=== PATIENT | female | born 1980 | race Caucasian/White ===

== ENCOUNTER 2022-01-10 14:32 | Emergency (ER) | payer OTHER, SELFPAY ==
[2022-01-10 14:43] VITALS: BP 110/75; PULSE 72; RESP 18; TEMP 37.1; O2SAT 100
--- NOTE | 2022-01-10 14:43 | ED.URI ---
HPI - URI/Sore Throat General Chief Complaint: Upper Respiratory Infection Stated Complaint: cold symptoms Time Seen by Provider: 01/10/22 14:43 Source: patient and RN notes reviewed Mode of arrival: ambulatory Limitations: no limitations History of Present Illness HPI Narrative: 41-year-old female presented for complaint of headache, sore throat, sinus congestion, and body aches for about 5 days. She states she felt better 2 days ago but then symptoms worsened yesterday. She has been taking [id number] medication for symptoms. Denies chest pain, shortness of breath, wheezing, vomiting, diarrhea, fever or chills. She took a home COVID test that was -4 days ago. She is vaccinated for Covid and flu. Denies sick contacts. MD elicited complaint: cough Related Data Home Medications Medication Instructions Recorded Confirmed levonorgestrel [Mirena] 1 device INTRAUTERINE ONCE 01/10/22 01/10/22 Allergies Allergy/AdvReac Type Severity Reaction Status Date / Time clarithromycin [From Biaxin] Allergy Other Verified 01/10/22 14:53 Review of Systems Review of Systems: CONSTITUTIONAL: denies malaise, chills, sweats, fever EYES: Denies visual changes, redness, or discharge ENT: Reports rhinorrhea, congestion, sinus pain, sore throat CARDIOVASCULAR: Denies chest pain, palpitations, edema RESPIRATORY: Reports cough, post nasal drainage. Denies dyspnea GASTROINTESTINAL: Denies abdominal pain, vomiting, diarrhea SKIN: Denies rash or itching MUSCULOSKELETAL: Endorses myalgia NEUROLOGIC: Denies headache Exam Narrative: GENERAL: Ill-appearing, nontoxic no acute distress. HEAD: Normocephalic EYES: conjunctivae clear ENT: Mucous membranes moist. TM pearly dias with dull light reflex bilaterally; no tragal tenderness. Oropharynx erythematous without lesions or exudate, no drooling, no hoarseness, no trismus, uvula midline. NECK: Supple. No lymphadenopathy CHEST: Clear to auscultation, breath sounds equal. No wheezing, rhonchi, rales, or stridor. HEART: Regular rate and rhythm. No murmur heard. SKIN: Warm, dry, no rash. NEURO: Alert and oriented x3. PSYCH: Normal mood and affect Course Course Emergency Course: Patient is aware of diagnosis, understands and agrees to treatment plan. Anticipatory guidance given. Patient agrees to follow-up as directed and is aware of reasons to seek care at the emergency department. Portions of this record may have been created with voice recognition software Level of Care: Express Care Visit Vital Signs Vital signs: Vital Signs Temperature 98.7 F 01/10/22 14:43 Pulse Rate 72 01/10/22 14:43 Respiratory Rate 18 01/10/22 14:43 Blood Pressure 110/75 01/10/22 14:43 Pulse Oximetry 100 01/10/22 14:43 Temperature 98.7 F 01/10/22 14:43 Pulse Rate 72 01/10/22 14:43 Respiratory Rate 18 01/10/22 14:43 Blood Pressure 110/75 01/10/22 14:43 Pulse Oximetry 100 01/10/22 14:43 reviewed MDM - URI/Sore Throat MDM Narrative Medical decision making narrative: Covid and flu negative. Strep positive. Pt is aware and appropriate for outpt treatment. Differential Diagnosis Differential diagnosis: Likely upper respiratory infection, sinusitis, viral infection, influenza and pharyngitis Lab Data Attestation: I reviewed the patient's lab results. Discharge Plan Discharge Clinical Impression: Strep pharyngitis Patient Disposition: Home, Self-Care Condition: Stable Instructions: Antibiotic Form Additional Instructions: -Take the medication as prescribed. Throw away the toothbrush after 24hours of antibiotic. -You are contagious for 24 hours after starting the antibiotic -Eat and drink things that are easy to swallow, like soft foods, cool liquids, tea with honey, or popsicles . -Salt water gargles and/or may use topical anesthetic ( Chloraseptic spray) or lozenges to relieve dryness or throat pain -Take Tylenol and ibuprofen as needed for pain and fever as d
== END 2022-01-10 15:12 | disposition home or self-care (01) ==
PROVIDERS: Emergency Provider Nurse Practitioner Family
DX: J02.0 Streptococcal pharyngitis (principal); Z20.822 Contact with and (suspected) exposure to COVID-19
CPT/HCPCS: 87426; 87804; 87880; 99203; C9803; G0463

== ENCOUNTER 2022-02-13 15:23 | Emergency (ER) | payer OTHER, SELFPAY ==
[2022-02-13 15:47] VITALS: BP 97/73; PULSE 61; RESP 18; TEMP 36.6; O2SAT 100
--- NOTE | 2022-02-13 16:07 | ED.URI ---
HPI - URI/Sore Throat General Chief Complaint: Upper Respiratory Infection Stated Complaint: Cold symptoms Time Seen by Provider: 02/13/22 15:55 Source: patient and RN notes reviewed Mode of arrival: ambulatory Limitations: no limitations History of Present Illness HPI Narrative: 41-year-old female presented for complaint of sinus pressure, congestion, cough and burning sensation in chest for about 4 weeks. 12/2021 she was treated for strep, states she had significant improvement in strep symptoms, and then after completing antibiotic she developed that upper respiratory symptoms. She did change her allergy medication and has taken Tylenol and ibuprofen without significant relief. Denies shortness of breath, wheezing, nausea, vomiting, diarrhea, fevers or chills. Denies sick contacts. She has been vaccinated for COVID and flu. MD elicited complaint: cough Related Data Home Medications Medication Instructions Recorded Confirmed levonorgestrel [Mirena] 1 device INTRAUTERINE ONCE 01/10/22 02/13/22 Allergies Allergy/AdvReac Type Severity Reaction Status Date / Time clarithromycin [From Biaxin] Allergy Other Verified 02/13/22 16:00 Review of Systems Review of Systems: CONSTITUTIONAL: denies malaise, chills, sweats, fever EYES: Denies visual changes, redness, or discharge ENT: Reports rhinorrhea, congestion, sinus pain CARDIOVASCULAR: Denies chest pain, palpitations, edema RESPIRATORY: Reports cough, post nasal drainage. Denies dyspnea GASTROINTESTINAL: Denies abdominal pain, nausea, vomiting, diarrhea SKIN: Denies rash or itching MUSCULOSKELETAL: denies myalgia NEUROLOGIC: endorses headache Exam Narrative: GENERAL: Ill-appearing, nontoxic HEAD: Normocephalic EYES: conjunctivae clear ENT: Mucous membranes moist. TM pearly dias with dull light reflex bilaterally; no tragal tenderness. Oropharynx erythematous without lesions or exudate, no drooling, no hoarseness, no trismus, uvula midline. NECK: Supple. No lymphadenopathy CHEST: Clear to auscultation, breath sounds equal. No wheezing, rhonchi, rales, or stridor. No respiratory distress, speaks in full sentences. HEART: Regular rate and rhythm. No murmur heard. SKIN: Warm, dry, no rash. NEURO: Alert and oriented x3. PSYCH: Normal mood and affect Course Course Emergency Course: Patient is aware of diagnosis, understands and agrees to treatment plan. Anticipatory guidance given. Patient agrees to follow-up as directed and is aware of reasons to seek care at the emergency department. Portions of this record may have been created with voice recognition software Level of Care: Express Care Visit Vital Signs Vital signs: Vital Signs Temperature 97.8 F 02/13/22 15:47 Pulse Rate 61 02/13/22 15:47 Respiratory Rate 18 02/13/22 15:47 Blood Pressure 97/73 L 02/13/22 15:47 Pulse Oximetry 100 02/13/22 15:47 Temperature 97.8 F 02/13/22 15:47 Pulse Rate 61 02/13/22 15:47 Respiratory Rate 18 02/13/22 15:47 Blood Pressure 97/73 L 02/13/22 15:47 Pulse Oximetry 100 02/13/22 15:47 reviewed MDM - URI/Sore Throat Differential Diagnosis Differential diagnosis: Likely upper respiratory infection, sinusitis and viral infection Discharge Plan Discharge Clinical Impression: Upper respiratory infection Qualifiers: URI type: unspecified URI Qualified Code(s): J06.9 - Acute upper respiratory infection, unspecified Patient Disposition: Home, Self-Care Condition: Stable Instructions: Antibiotic Form, Sinusitis (ED) Additional Instructions: Recommend Flonase spray and Zyrtec (or Claritin/Mary) over the counter Cough syrup may cause drowsiness Tylenol every 8 hours as needed for pain/pressure Symptomatic treatment includes: rest, fluids, and increase humidity of the air at home. Follow up with your primary care provider as needed in 1week Go to the ER for worsening symptoms or concerns Prescriptions: New amoxicillin-pot clavul
== END 2022-02-13 16:10 | disposition home or self-care (01) ==
PROVIDERS: Emergency Provider Nurse Practitioner Family
DX: J06.9 Acute upper respiratory infection, unspecified (principal)
CPT/HCPCS: 99213; G0463

== ENCOUNTER 2022-02-18 10:05 | Emergency (ER) | payer OTHER, SELFPAY ==
--- NOTE | ~2022-02-18 | XR_ITS ---
EXAMINATION: XR chest 2V DATE: 02/18/2022 10:45 INDICATION: Productive cough. Congestion. TECHNIQUE: Frontal and lateral views of the chest were obtained on 3 radiographs. COMPARISON: None. FINDINGS: There is no pneumonia, pleural effusion, or pneumothorax. The heart size is normal. IMPRESSION: 1. No acute cardiopulmonary disease. Reviewed, dictated and finalized at location A.
[2022-02-18 10:24] VITALS: BP 95/66; PULSE 60; RESP 16; TEMP 36.3; O2SAT 97
--- NOTE | 2022-02-18 10:25 | ED.URI ---
HPI - URI/Sore Throat General Chief Complaint: Upper Respiratory Infection Stated Complaint: cold symptoms,chest congestion Time Seen by Provider: 02/18/22 10:27 Source: patient Mode of arrival: ambulatory Limitations: no limitations History of Present Illness HPI Narrative: Ms. Martínez is a 41-year-old female patient presenting to the clinic today with complaints of chest congestion with productive cough x1 month. She reports she was seen just last week and was given a prescription for some Augmentin. Has a history of nontuberculosis Mycobacterium. She reports that she is bringing up some green-yellowish phlegm. No history of COPD or asthma. No history of smoking. States that she was having pain with inspiration in her chest however that has resolved but now when she is breathing she is feeling a lot of crackling/congestion in her chest. Related Data Home Medications Medication Instructions Recorded Confirmed levonorgestrel 20 mcg/24 hours (7 1 device intrauterine ONCE 01/10/22 02/18/22 yrs) 52 mg intrauterine device (Mirena) Allergies Allergy/AdvReac Type Severity Reaction Status Date / Time clarithromycin [From Biaxin] Allergy Other Verified 02/18/22 10:38 Review of Systems Review of Systems: Pertinent positives per HPI. Patient denies any fever, chills, rash, headache, visual changes, dizziness, runny nose, sore throat, shortness of breath, chest pain, palpitations, nausea, vomiting, diarrhea, constipation, abdominal pain, or any urinary issues. Exam Narrative: General: Well-developed, well nourished, in no apparent distress Head: Normocephalic, atraumatic Eyes: Pupils equally round and reactive to light bilaterally, EOM intact, sclera and conjunctive clear, no discharge, lids normal Ears: TMs intact and clear, ear canals clear, no drainage, grossly hearing normal. Nose: Nares patent, clear discharge, no inflammation, no sinus tenderness. Mouth: Oropharynx without lesions or masses, good dentition, MMM. Neck: Supple, trachea midline, no enlargement of anterior or posterior cervical nodes, no thyroid masses or goiter palpable. Cardio: Regular rate and rhythm, s1 and s2 normal, no murmur appreciated. Resp: Clear to auscultation bilaterally anteriorly and posteriorly with moderate airflow, no rhonchi, rales, wheezing or rubs Course Course Emergency Course: This electronic medical record has been dictated using [employer] voice recognition software and may contain grammatical errors. Level of Care: Express Care Visit Vital Signs Vital signs: Vital Signs Temperature 36.3 C L 02/18/22 10:24 Pulse Rate 60 02/18/22 10:24 Respiratory Rate 16 02/18/22 10:24 Blood Pressure 95/66 L 02/18/22 10:24 Pulse Oximetry 97 02/18/22 10:24 Oxygen Delivery Room Air 02/18/22 10:24 Temperature 36.3 C L 02/18/22 10:24 Pulse Rate 60 02/18/22 10:24 Respiratory Rate 16 02/18/22 10:24 Blood Pressure 95/66 L 02/18/22 10:24 Pulse Oximetry 97 02/18/22 10:24 Oxygen Delivery Room Air 02/18/22 10:24 Vital signs reviewed MDM - URI/Sore Throat MDM Narrative Medical decision making narrative: At the time of this assessment patient is resting comfortably on the exam table. She reports coughing up green and yellow phlegm with a history of nontuberculosis myobacterium pulmonary disease. She has been on 5 days of Augmentin and these have improved her symptoms some. X-ray was completed and was negative for any pneumonia. I suspect that the patient has bronchitis and will give her another 5 days of Augmentin as she was initially diagnosed with sinusitis and was only given 5 days of Augmentin. I will also add albuterol inhaler to the regimen. Supportive measures and treatment plan was discussed with patient she voiced understanding of discharge instructions. Differential Diagnosis Differential diagnosis: Likely upper respiratory infection, sinusitis, viral infection, bronchitis, influenza and pharyng
== END 2022-02-18 11:01 | disposition home or self-care (01) ==
PROVIDERS: Emergency Provider Nurse Practitioner Family
DX: J40 Bronchitis, not specified as acute or chronic (principal)
CPT/HCPCS: 71046; 99213; G0463

== ENCOUNTER 2022-05-15 08:27 | Emergency (ER) | payer OTHER, SELFPAY ==
--- NOTE | 2022-05-15 08:30 | ED.SKABFB ---
HPI - Skin/Abscess/Foreign Bdy General Stated complaint: FACIAL SWELLING/RASH Time Seen by Provider: 05/15/22 08:30 Source: patient and RN notes reviewed History of Present Illness HPI narrative: Patient is a 41-year-old female who presents the urgent care with complaints of swelling under the left eye and bumps to the abdomen. Patient states that she has not taken anything [id number] for her symptoms. Patient states that her son started with symptoms after they were outside of the ball field on Thursday and she just wanted to be evaluated as well . Patient denies any itchiness. Denies any changes in vision. No other acute complaints. No acute distress noted. Patient aware of the plan of care. Some parts of this dictation were generated by voice recognition software and may contain typographical and/or grammatical inaccuracies. Related Data Home Medications Medication Instructions Recorded Confirmed levonorgestrel 20 mcg/24 hours (7 1 device intrauterine ONCE 01/10/22 02/18/22 yrs) 52 mg intrauterine device (Mirena) Allergies Allergy/AdvReac Type Severity Reaction Status Date / Time clarithromycin [From Biaxin] Allergy Other Verified 02/18/22 10:38 Review of Systems Review of Systems: CONSTITUTIONAL: Denies fever, chills, or sweats. EYES: Denies visual changes, redness, or discharge. Reports of swelling under the left eyelid ENT: Denies rhinorrhea, congestion, sore throat, or otalgia. CARDIOVASCULAR: Denies chest pain, palpitations, or edema. RESPIRATORY: Denies cough or dyspnea. GASTROINTESTINAL: Denies abdominal pain, nausea, vomiting, or diarrhea. GENITOURINARY: Denies dysuria or hematuria. SKIN: Reports of bumps on the abdomen MUSCULOSKELETAL: Denies back pain, joint pain, or myalgia. NEUROLOGIC: Denies headache, numbness, or weakness. All other systems reviewed are negative, except as documented in HPI. PMFSH Comments At the time of my signature, I reviewed and agree with the nursing past medical, surgical, social, and family history. There is no relevant family history pertinent to the patient complaint. Exam Narrative: GENERAL: This is a well-nourished, well-developed patient, in no apparent distress. HEAD: normocephalic, atraumatic. EYES: PERRL. Sclera clear/white. Vision is grossly intact. Very mild left tear trough edema without erythema EARS: External ears normal NOSE: External nose normal with no obvious nasal discharge, nares without redness, no rhinorrhea. THROAT: Mucous membranes moist NECK: Neck supple CARDIOVASCULAR: Regular rate and rhythm without murmurs, gallops, or rubs. RESPIRATORY: Clear to auscultation. Breath sounds equal bilaterally. No wheezes, rales, or rhonchi. GASTROINTESTINAL: Abdomen soft, non-tender, nondistended. Bowel sounds are active. No hepato-splenomegaly, or palpable masses. No guarding. SKIN: 4 scattered raised erythemic papules to the abdomen NEURO: awake, alert, and oriented to person, place and time. There were no obvious focal neurologic abnormalities. EXTREMITIES: No clubbing, cyanosis, or edema. Course Course Level of Care: Express Care Visit Vital Signs Vital signs: Vital Signs Temperature 99.6 F 05/15/22 08:43 Pulse Rate 72 05/15/22 08:43 Respiratory Rate 16 05/15/22 08:43 Blood Pressure 111/80 05/15/22 08:43 Pulse Oximetry 100 05/15/22 08:43 Temperature 99.6 F 05/15/22 08:43 Pulse Rate 72 05/15/22 08:43 Respiratory Rate 16 05/15/22 08:43 Blood Pressure 111/80 05/15/22 08:43 Pulse Oximetry 100 05/15/22 08:43 Reviewed MDM - Skin/Abscess/Foreign Bdy MDM Narrative Medical decision making narrative: Advised the patient to use the cream to the affected areas of the abdomen. Keep away from the eyes, underarms and groin. Use a daily antihistamine such as Claritin or Zyrtec as well as Benadryl as needed for itch or swelling. Follow-up with your PCP within 2 to 5 days or for worsening symptoms or failure to
[2022-05-15 08:43] VITALS: BP 111/80; PULSE 72; RESP 16; TEMP 37.6; O2SAT 100
== END 2022-05-15 09:32 | disposition home or self-care (01) ==
PROVIDERS: Emergency Provider Nurse Practitioner Family
DX: S30.861A Insect bite (nonvenomous) of abdominal wall, initial encounter (principal); W57.XXXA Bitten or stung by nonvenomous insect and other nonvenomous arthropods, initial encounter
CPT/HCPCS: 99213; G0463

== ENCOUNTER 2023-01-13 08:04 | Emergency (ER) | payer OTHER, SELFPAY ==
--- NOTE | 2023-01-13 08:19 | ED.URI ---
HPI - URI/Sore Throat General Chief Complaint: Upper Respiratory Infection Stated Complaint: sorethroat,headache Time Seen by Provider: 01/13/23 08:19 Source: patient Mode of arrival: ambulatory Limitations: no limitations History of Present Illness HPI Narrative: 42-year-old female presents with complaint nasal congestion, cough, sore throat, body aches, fatigue, headache for the past 3 days. Is taking [id number] medications to treat her symptoms. Afebrile. Reports that her daughter had strep throat last week. Is concerned that she may have it. Denies nausea vomiting diarrhea all systems reviewed and negative except as noted above. Related Data Home Medications Medication Instructions Recorded Confirmed levonorgestrel 21 mcg/24 hours (8 1 device intrauterine ONCE 01/10/22 02/18/22 yrs) 52 mg intrauterine device (Mirena) Allergies Allergy/AdvReac Type Severity Reaction Status Date / Time clarithromycin [From Biaxin] Allergy Other Verified 01/13/23 08:21 Review of Systems Review of Systems: CONSTITUTIONAL: Denies fever. Reports chills, or sweats. EYES: Denies visual changes, redness, or discharge. ENT: Reports rhinorrhea, congestion, sore throat. Denies otalgia. CARDIOVASCULAR: Denies chest pain, palpitations, or edema. RESPIRATORY: reports cough. Denies dyspnea. GASTROINTESTINAL: Denies abdominal pain, nausea, vomiting, or diarrhea. GENITOURINARY: Denies dysuria or hematuria. SKIN: Denies rash or itching. MUSCULOSKELETAL: Denies back pain, joint pain, or myalgia. NEUROLOGIC: Denies headache, numbness, or weakness. PSYCHIATRIC: Denies anxiety or depression. All other systems reviewed are negative, except as documented in HPI. PMFSH Comments At time of signature, agree with nursing past medical, surgical, social and family history. There is no relevant family history pertinent to the presenting complaint. Exam Narrative: GENERAL: This is a well-nourished, well-developed patient, in no apparent distress. HEAD: normocephalic, atraumatic. EYES: PERRL. Sclera clear/white. Vision is grossly intact. EARS: External ears normal, auditory canals clear and without drainage, TMs normal without perforation. Hearing grossly intact. NOSE: External nose normal with clear nasal drainage, mild erythema to nares. THROAT: Mucous membranes moist, Mild erythema to posterior pharynx. No swelling or exudates. NECK: Neck supple, non-tender without lymphadenopathy, masses or thyromegaly. CARDIOVASCULAR: Regular rate and rhythm without murmurs, gallops, or rubs. RESPIRATORY: Clear to auscultation. Breath sounds equal bilaterally. No wheezes, rales, or rhonchi. SKIN: warm, Dry, intact with no suspicious lesions or rash, good texture and turgor. NEURO: awake, alert, and oriented to person, place and time. There were no obvious focal neurologic abnormalities. EXTREMITIES: No joint tenderness, effusion, or edema noted. Course Course Level of Care: Express Care Visit Vital Signs Vital signs: Vital Signs Temperature 36.8 C 01/13/23 08:21 Pulse Rate 73 01/13/23 08:21 Respiratory Rate 16 01/13/23 08:21 Blood Pressure 111/73 01/13/23 08:21 Pulse Oximetry 100 01/13/23 08:21 Oxygen Delivery Room Air 01/13/23 08:21 Temperature 36.8 C 01/13/23 08:21 Pulse Rate 73 01/13/23 08:21 Respiratory Rate 16 01/13/23 08:21 Blood Pressure 111/73 01/13/23 08:21 Pulse Oximetry 100 01/13/23 08:21 Oxygen Delivery Room Air 01/13/23 08:21 Reviewed MDM - URI/Sore Throat MDM Narrative Medical decision making narrative: Patient is aware of diagnosis, understands and agrees to treatment plan. Anticipatory guidance given. Patient agrees to follow-up as directed and is aware of reasons to seek care at the emergency department. Portions of this record may have been created with voice recognition software negative COVID, strep and influenza test. Patient would like to wait for stre
[2023-01-13 08:21] VITALS: BP 111/73; PULSE 73; RESP 16; TEMP 36.8; O2SAT 100
== END 2023-01-13 08:50 | disposition home or self-care (01) ==
PROVIDERS: Emergency Provider Nurse Practitioner Family
DX: J06.9 Acute upper respiratory infection, unspecified (principal); Z20.822 Contact with and (suspected) exposure to COVID-19
CPT/HCPCS: 87081; 87426; 87804; 87880; 99213; C9803; G0463

== ENCOUNTER 2023-08-26 09:54 | Emergency (ER) | payer OTHER, SELFPAY ==
--- NOTE | ~2023-08-26 | XR_ITS ---
Clinical Indication: Chest pain PA and lateral views of the chest: Comparison: 02/18/2022 Findings: The lungs are clear, without evidence of focal consolidation or pleural effusion. Cardiome diastinal silhouette is within normal limits. Bones and soft tissues are unremarkable. Impression: Normal chest. Reviewed, dictated and finalized at [facility]. RAL DOC Impression: Normal chest.
--- NOTE | 2023-08-26 09:59 | ED.URI ---
HPI - URI/Sore Throat General Chief Complaint: Upper Respiratory Infection Stated Complaint: cold/flu like symptoms Time Seen by Provider: 08/26/23 09:58 Source: patient Mode of arrival: ambulatory Limitations: no limitations History of Present Illness HPI Narrative: Patient is a 42-year-old female who presents with body aches, sore throat, ear fullness, cough since Thursday. Family members have had influenza a. Patient is concern for pneumonia due to history. Patient has not taken anything for symptoms. Denies any fever, chills, nausea, vomiting, diarrhea. Patient has nebulizer at home but has not been using it. Related Data Home Medications Medication Instructions Recorded Confirmed levonorgestrel 21 mcg/24 hours (8 1 device intrauterine ONCE 01/10/22 08/26/23 yrs) 52 mg intrauterine device (Mirena) Allergies Allergy/AdvReac Type Severity Reaction Status Date / Time clarithromycin [From Biaxin] Allergy Other Verified 01/13/23 08:21 Review of Systems Review of Systems: All systems reviewed & are unremarkable except as noted in HPI and below Constitutional: Constitutional: Reports body ache(s), Denies chills, Denies fatigue, Denies fever(s), Denies headache(s), Denies malaise and Denies weakness Eyes: Eyes: Denies blurry vision, Denies itchy eyes and Denies loss of vision ENT: Denies otalgia, Denies headache(s), Reports nasal congestion, Denies sinus pain and Reports sore throat Cardiovascular: Cardiovascular: Denies chest pain, Denies irregular heart rhythm and Denies dyspnea Respiratory: Respiratory: Reports cough and Denies dyspnea Gastrointestinal: Gastrointestinal: Denies abdominal pain, Denies diarrhea, Denies nausea and Denies vomiting Musculoskeletal: Musculoskeletal: Denies back pain, Denies myalgias and Denies arthralgias Integumentary/Breasts: Skin/Breast: Denies pruritus and Denies rash Neurologic: Denies headache(s), Denies loss of vision and Denies weakness Psychiatric: Psychiatric: Reports no additional psychiatric complaints Endocrine: Endocrine: Denies fatigue Allergic/Immunologic: Allergic/Immunologic: Denies itchy eyes PMFSH Comments At time of signature, agree with nursing past medical, surgical, social and family history. There is no relevant family history pertinent to the presenting complaint. Exam Const: General: cooperative, healthy appearing, comfortable, no acute distress and well nourished Nutritional Appearance: well nourished Orientation/consciousness: patient oriented x3 Limitations: no limitations HENMT: Head: normal to inspection, normocephalic and atraumatic Ears: hearing grossly normal bilaterally, external ears normal, TM's normal bilaterally, EAC's normal and no periauricular adenopathy Face/Nose/Sinus: Normal external nose present, Abnormal mucous membranes and turbinates present erythematous bilateral and diffuse, normal facial exam, sinuses nontender and face symmetric Face and sinus: normal facial exam, sinuses nontender and face symmetric Mouth: Yes Normal oral and palatal mucosa present, Yes lip normal, Yes tongue normal, Yes Normal salivary glands and ducts present, Yes oropharynx normal and Yes moist mucous membranes Teeth and gingiva: dentition normal Throat: posterior oropharynx normal, tonsils normal and uvula midline Eyes: General: appearance normal, both eyes and all related structures Alignment and Position: alignment normal and position normal Periorbital: periorbital findings normal Eyelids: eyelids normal Pupils: Equal, round and reactive pupils present Neck: Neck: normal visual inspection, full ROM, no lymphadenopathy and supple Chest: Chest palpation & inspection: normal inspection of the chest and normal palpation of entire chest wall Resp: Effort & Inspection: normal respiratory effort, able to speak in complete sentences and Actively coughing wet Auscultation: clear to auscultation bilaterally, no crackles, no rales, no rhonchi and
[2023-08-26 10:05] VITALS: BP 105/60; PULSE 67; RESP 18; TEMP 36.5; O2SAT 100
== END 2023-08-26 10:49 | disposition home or self-care (01) ==
PROVIDERS: Emergency Provider Nurse Practitioner Family
DX: J10.1 Influenza due to other identified influenza virus with other respiratory manifestations (principal); Z20.822 Contact with and (suspected) exposure to COVID-19
CPT/HCPCS: 71046; 87804; 99213; G0463

== ENCOUNTER 2024-07-15 09:38 | Emergency (ER) | payer OTHER, SELFPAY ==
--- NOTE | 2024-07-15 09:45 | ED.URI ---
HPI - URI/Sore Throat General Chief Complaint: Upper Respiratory Infection Stated Complaint: cold/ flu possible Source: patient, RN notes reviewed and old records reviewed Mode of arrival: ambulatory Limitations: no limitations History of Present Illness HPI Narrative: 43-year-old female presents to the [facility] with Complaints of body aches, chills, dry cough. Sx started on Thursday, 3 days ago. Patient reports that she was seen on [facility] on Thursday, was told she had a cold. Has taken tylenol Denies fevers. Onset (ago): day(s) (3) Treatments prior to arrival: acetaminophen Related Data Home Medications Medication Instructions Recorded Confirmed levonorgestrel 21 mcg/24 hr (up to 1 device intrauterine ONCE 01/10/22 07/15/24 8 years) 52 mg intrauterine device (Mirena) cholecalciferol (vitamin D3) 125 125 mcg PO WEEKLY 07/15/24 07/15/24 mcg (5,000 unit) capsule loratadine 10 mg tablet 10 mg PO DAILY 07/15/24 07/15/24 Allergies Allergy/AdvReac Type Severity Reaction Status Date / Time clarithromycin [From Biaxin] Allergy Unknown Other Verified 07/15/24 09:49 Review of Systems Review of Systems: All systems reviewed & are unremarkable except as noted in HPI and below Constitutional: Constitutional: Reports as per HPI, Reports body ache(s) and Reports chills Eyes: Eyes: Reports no additional eye complaints ENT: Reports system reviewed and no additional complaints, except as documented Cardiovascular: Cardiovascular: Reports no additional cardiovascular complaints, Denies chest pain and Denies dyspnea Respiratory: Respiratory: Reports as per HPI, Denies chest congestion, Reports cough and Denies dyspnea Gastrointestinal: Gastrointestinal: Reports no additional gastrointestinal complaints, Denies abdominal pain, Denies nausea and Denies vomiting Musculoskeletal: Musculoskeletal: Reports no additional musculoskeletal complaints Integumentary/Breasts: Skin/Breast: Reports system reviewed and no additional complaints, except as docu Neurologic: Reports system reviewed and no additional complaints, except as documented Psychiatric: Psychiatric: Reports no additional psychiatric complaints Allergic/Immunologic: Allergic/Immunologic: Reports no additional allergic/immunologic complaints PMFSH Comments At the time of my signature, I reviewed and agree with the nursing past medical, surgical, social, and family history. There is no relevant family history pertinent to the patient complaint. Exam Const: General: cooperative, healthy appearing, comfortable, no acute distress, well developed, alert and well nourished Nutritional Appearance: well nourished Orientation/consciousness: patient oriented x3 Limitations: no limitations HENMT: Head: normal to inspection Ears: hearing grossly normal bilaterally, external ears normal, TM's normal bilaterally, EAC's normal, mastoids normal and no periauricular adenopathy Face/Nose/Sinus: Normal external nose present, Normal nasal mucous membranes and turbinates present, normal facial exam and face symmetric Face and sinus: normal facial exam and face symmetric Mouth: Yes Normal oral and palatal mucosa present, Yes lip normal and Yes tongue normal Throat: posterior oropharynx normal, tonsils normal, uvula midline and no uvular edema Eyes: General: appearance normal, both eyes and all related structures Alignment and Position: alignment normal Periorbital: periorbital findings normal Neck: Neck: normal visual inspection, full ROM, no lymphadenopathy and no meningeal signs Chest: Chest palpation & inspection: normal inspection of the chest Resp: Effort & Inspection: normal respiratory effort and able to speak in complete sentences Auscultation: clear to auscultation bilaterally, no crackles, no rales, no rhonchi and no wheezes Cardio: Rate: regular rate Rhythm: regular rhythm Skin: General skin exam: normal color and no rashes or lesions noted Lesions: no lesions Rashe
[2024-07-15 09:58] VITALS: BP 107/60; PULSE 83; RESP 16; TEMP 36.9; O2SAT 100
[2024-07-15 10:14] LABS: EDCOVIDSCREEN Negative (Negative); EDINFLUASCREEN Negative (Negative); EDINFLUBSCREEN Negative (Negative)
== END 2024-07-15 10:15 | disposition home or self-care (01) ==
PROVIDERS: Emergency Provider Nurse Practitioner
DX: J06.9 Acute upper respiratory infection, unspecified (principal); Z79.899 Other long term (current) drug therapy; Z20.822 Contact with and (suspected) exposure to COVID-19
CPT/HCPCS: 87426; 87804; 99212; G0463

== ENCOUNTER 2024-07-26 08:01 | Emergency (ER) | payer OTHER, SELFPAY ==
--- NOTE | ~2024-07-26 | XR_ITS ---
EXAMINATION: XR chest 2V DATE: 07/26/2024 08:53 INDICATION: 2 and the half weeks of cough TECHNIQUE: PA and lateral views of the chest were obtained. COMPARISON: Chest radiograph dated 08/26/2023 FINDINGS: Patchy airspace opacities in the left lower lobe and lingula consistent with pneumonia. Right lung is clear. No pulmonary edema, pleural effusion or pneumothorax. The cardiomediastinal silhouette is nor mal. Mild thoracic kyphosis with mild spondylosis. IMPRESSION: 1. Pneumonia in the left lower lobe and lingula. Reviewed, dictated and finalized at location A.
[2024-07-26 08:21] VITALS: BP 119/77; PULSE 83; RESP 16; TEMP 37.7; O2SAT 100
--- NOTE | 2024-07-26 08:22 | ED.URI ---
HPI - URI/Sore Throat General Chief Complaint: Upper Respiratory Infection Stated Complaint: cold symptoms Time Seen by Provider: 07/26/24 09:18 Source: patient and RN notes reviewed Mode of arrival: ambulatory Limitations: no limitations History of Present Illness HPI Narrative: 43-year-old female presents with concern for 2 and half weeks of illness. Reports she was seen 10 days ago and diagnosed with upper respiratory infection, at that time she was negative for flu and COVID. She reports her symptoms started to improve but then in worsen. Reports body aches, chills, sweats, cough that is productive. She has been taking DayQuil and NyQuil. MD elicited complaint: cough Related Data Home Medications Medication Instructions Recorded Confirmed levonorgestrel 21 mcg/24 hr (up to 1 device intrauterine ONCE 01/10/22 07/26/24 8 years) 52 mg intrauterine device (Mirena) cholecalciferol (vitamin D3) 125 125 mcg PO WEEKLY 07/15/24 07/26/24 mcg (5,000 unit) capsule loratadine 10 mg tablet 10 mg PO DAILY 07/15/24 07/26/24 ascorbic acid (vitamin C) 500 mg 250 mg PO DAILY 07/26/24 07/26/24 tablet multivit with minerals-iron 18 1 tablet PO DAILY 07/26/24 07/26/24 mg-folic ac 400 mcg-vit K 25 mcg tablet (Adults Multivitamin) omega 9-zlo-rsp-fish oil 60 mg-90 1 cap PO DAILY 07/26/24 07/26/24 mg-500 mg capsule (Fish Oil) Allergies Allergy/AdvReac Type Severity Reaction Status Date / Time clarithromycin [From Biaxin] Allergy Unknown Other Verified 07/26/24 08:26 Review of Systems Review of Systems: CONSTITUTIONAL: Reports malaise, chills, sweats EYES: Denies visual changes, redness, or discharge. ENT: Denies rhinorrhea, congestion, sinus pain, otalgia and sore throat. CARDIOVASCULAR: Denies chest pain, palpitations, or edema. RESPIRATORY: Reports cough. Denies dyspnea. GASTROINTESTINAL: Denies abdominal pain, nausea, vomiting, diarrhea SKIN: Denies rash or itching. MUSCULOSKELETAL: Reports myalgia. NEUROLOGIC: Denies headache. All systems reviewed & are unremarkable except as noted in HPI and below PMFSH Comments At time of signature, agree with nursing past medical, surgical, social and family history. There is no relevant family history pertinent to the presenting complaint Exam Narrative: GENERAL: Nontoxic-appearing, well-nourished, and in no acute distress. HEAD: Normocephalic EYES: PERRLA, conjunctivae clear ENT: Nares clear. Mucous membranes moist. TM pearly dias with dull light reflex bilaterally; no tragal tenderness. Oropharynx not erythematous without lesions. Tonsils not enlarged and without exudate, no drooling, no hoarseness, no trismus, uvula midline. NECK: Supple. No lymphadenopathy CHEST: Breath sounds diminished in left lower lobe, expiratory wheeze and scattered rhonchi noted the left lung. No rales, or stridor. No respiratory distress, speaks in full sentences. HEART: Regular rate and rhythm. No murmur heard. SKIN: Warm, dry, no rash. NEURO: Alert and oriented x3. PSYCH: Normal mood and affect Course Course Emergency Course: Patient is aware of diagnosis, understands and agrees to treatment plan. Anticipatory guidance given. Patient agrees to follow-up as directed and is aware of reasons to seek care at the emergency department. Portions of this record may have been created with voice recognition software Level of Care: Express Care Visit Vital Signs Vital signs: Vital Signs Temperature 99.8 F H 07/26/24 08:21 Pulse Rate 83 07/26/24 08:21 Respiratory Rate 16 07/26/24 08:21 Blood Pressure 119/77 07/26/24 08:21 Pulse Oximetry 100 07/26/24 08:21 Oxygen Delivery Room Air 07/26/24 08:21 Temperature 99.8 F H 07/26/24 08:21 Pulse Rate 83 07/26/24 08:21 Respiratory Rate 16 07/26/24 08:21 Blood Pressure 119/77 07/26/24 08:21 Pulse Oximetry 100 07/26/24 08:21 Oxygen Delivery Room Air 07/26/24 08:21 Reviewed. MDM - URI/Sore Throat MDM Narrative Medical decision making narrative: Differential diagnosis considered: Simeon virus, strep pharyngitis, allergic rhinitis, upper respiratory tract infection, sinusitis, rhinosinusitis, nasopharyngitis. viral pharyngitis, otitis media, otitis externa, pneumonia, bronchitis, viral cough syndrome, viral syndrome, and influenza. Exam findings show no acute concerns or changes; patient is non-toxic appearing and is in no distress. Patient is appropriate for outpatient treatment and follow-up. Lab Data Attestation: I reviewed the patient's lab results. Critical Care Time Critical Care Time Critical Care Time: No Discharge Plan Discharge Clinical Impression: Pneumonia Patient Disposition: Home, Self-Care Condition: Stable Instructions: Antibiotic Form, Pneumonia (ED) Additional Instructions: Pneumonia is a lung infection that can cause a fever, cough, and trouble breathing. Please continue all antibiotics as directed until complete. Use your nebulizer as needed for shortness of breath, wheezing. Nutrition is important - eat small frequent meals. Get lots of rest and drink fluids. Call your Primary Care Doctor upon arrival home from the hospital and make a follow-up appointment in 3-5 days. If your cough worsens, you develop a persistent fever you develop shaking chills, a fast heartbeat, trouble breathing and/or feel you are are breathing much faster than usual, call your Primary Care Doctor or go to the ER. Make sure you wash your hands frequently. Prescriptions: New doxycycline monohydrate 100 mg tablet 100 mg PO BID 7 Days Qty: 14 0RF No Action Mirena 20 mcg/24 hours (7 yrs) 52 mg Intrauterine Device 1 device INTRAUTERINE ONCE loratadine 10 mg tablet 10 mg PO DAILY cholecalciferol (vitamin D3) 125 mcg (5,000 unit) capsule 125 mcg PO WEEKLY ascorbic acid (vitamin C) 500 mg Tablet 250 mg PO DAILY omega 8-hsh-kej-fish oil [Fish Oil] 60-90-500 mg Capsule 1 cap PO DAILY Adults Multivitamin 18 mg iron-400 mcg-25 mcg Tablet 1 tablet PO DAILY Follow-up/Referrals: [facility] [place] [facility], [Primary Care Provider] - Stand Alone Forms: Work/School Release IP Time of Disposition: 09:17
== END 2024-07-26 09:52 | disposition home or self-care (01) ==
PROVIDERS: Emergency Provider Nurse Practitioner
DX: J18.9 Pneumonia, unspecified organism (principal); Z86.16 Personal history of COVID-19
CPT/HCPCS: 71046; 99213; G0463

== ENCOUNTER 2024-08-05 09:00 | Emergency (ER) | payer OTHER, SELFPAY ==
--- NOTE | ~2024-08-05 | XR_ITS ---
EXAMINATION: XR ribs LT 2V w CXR 2V DATE: 08/05/2024 09:33 INDICATION: Cough and shortness of breath. TECHNIQUE: Frontal and lateral views of the chest and 2 views on 3 radiographs of the left ribs were obtained. COMPARISON: Chest 2 views 07/26/2024 FINDINGS: CHEST TWO VIEWS: There are airspace opacities in left lower lung zone. No pleural effusion or pneumot horax. The heart size is normal. LEFT RIBS: There is no rib fracture. IMPRESSION: 1. No rib fracture. 2. Improved airspace opacities in left lower lung zone, consistent with pneumonia. Reviewed, dictated and finalized at location A. 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 No rib fracture. 2. Improved airspace opacities in left lower lung zone, consistent with pneumon ia.
--- NOTE | 2024-08-05 09:06 | ED_ITS ---
HPI - Back Pain/Injury General Chief Complaint: Upper Respiratory Infection Stated Complaint: back and side pain Time Seen by Provider: 08/05/24 09:10 Source: patient Mode of arrival: ambulatory Limitations: no limitations History of Present Illness HPI Narrative: Ursula is a 43-year-old female patient presenting to the clinic today with complaints of left-sided back/rib pain. She reports that she was diagnosed with left lower lobe pneumonia on July 25. Was given prescription for doxycycline in his completed the antibiotic. States that her symptoms are improved however she is having pain in the left back/ribs with coughing. States that she has a continuous dry nonproductive cough. She denies any fever or chills. 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 States she did contact the stunt man and they stated as long as her symptoms are improving they do not need to follow-up with her in regards to the pneumonia Related Data Home Medications Medication Instructions Recorded Confirmed levonorgestrel 21 mcg/24 hr (up to 1 device intrauterine ONCE 01/10/22 08/05/24 8 years) 52 mg intrauterine device (Mirena) cholecalciferol (vitamin D3) 125 125 mcg PO WEEKLY 07/15/24 08/05/24 mcg (5,000 unit) capsule loratadine 10 mg tablet 10 mg PO DAILY 07/15/24 08/05/24 ascorbic acid (vitamin C) 500 mg 250 mg PO DAILY 07/26/24 08/05/24 tablet multivit with minerals-iron 18 1 tablet PO DAILY 07/26/24 08/05/24 mg-folic ac 400 mcg-vit K 25 mcg tablet (Adults Multivitamin) omega 9-mkj-njx-fish oil 60 mg-90 1 cap PO DAILY 07/26/24 08/05/24 mg-500 mg capsule (Fish Oil) Allergies Allergy/AdvReac Type Severity Reaction Status Date / Time clarithromycin [From Biaxin] Allergy Unknown Other Verified 08/05/24 09:07 Review of Systems Review of Systems: Pertinent positives per HPI. Patient denies any fever, chills, rash, headache, visual changes, dizziness, shortness of breath, chest pain, palpitations, nausea, vomiting, diarrhea, constipation, abdominal pain, or any urinary issues. PMFSH Comments At the time of my signature, I reviewed and agree with the nursing past medical, surgical, social, and family history. There is no relevant family history pertinent to the patient complaint. Exam Narrative: General: Well-developed, well nourished, in no apparent distress Head: Normocephalic, atraumatic Eyes: Pupils equally round and reactive to light bilaterally, EOM intact, sclera and conjunctive clear, no discharge, lids normal Ears: TMs intact and clear, ear canals clear, no drainage, grossly hearing normal. Nose: Nares patent, no discharge, no inflammation, no sinus tenderness. Mouth: Oral pharynx without lesions or masses, good dentition, MMM. Neck: Supple, trachea midline, no enlargement of anterior or posterior cervical nodes, no thyroid masses or goiter palpable. Chest wall: No bruising or swelling noted, even rise and fall of the chest wall, tenderness to palpation over the left lateral/posterior ribs Cardio: Regular rate and rhythm, s1 and s2 normal, no murmur appreciated. Resp: Crackles heard in the left lower and left mid lung zones, no rhonchi, wheezing or rubs Course Course Emergency Course: Portions of this record may have been created with voice recognition software. Level of Care: Express Care Visit Vital Signs Vital signs: Vital Signs Temperature 36.6 C 08/05/24 09:07 Pulse Rate 83 08/05/24 09:07 Respiratory Rate 18 08/05/24 09:07 Blood Pressure 91/57 L 08/05/24 09:07 Pulse Oximetry 100 08/05/24 09:07 Oxygen Delivery Room Air 08/05/24 09:07 Temperature 36.6 C 08/05/24 09:07 Pulse Rate 83 08/05/24 09:07 Respiratory Rate 18 08/05/24 09:07 Blood Pressure 91/57 L 08/05/24 09:07 Pulse Oximetry 100 08/05/24 09:07 Oxygen Delivery Room Air 08/05/24 09:07 Vital signs reviewed MDM - Back Pain/Injury MDM Narrative Medical decision making narrative: At the time of visit patient is resting comfortably on the exam table. Patient appears to be nontoxic. Diagnostics: Left unilateral ribs and PA/Lat chest was performed-shows no acute rib fracture and improved airspace opacities in left lower lung zone consistent with pneumonia. Plan: I suspect patient has resolving left lower lobe pneumonia as well as chest wall pain/costochondritis. Prescriptions for Medrol Dosepak and Tessalon Perles was sent to the pharmacy. Patient has prescription for nebulizer treatments at home. She declined an albuterol inhaler in the clinic today. Supportive measures were discussed with the patient and they voiced understanding discharge instructions and agrees to treatment plan. Return precautions reviewed Differential Diagnosis Differential diagnosis: Likely other (Pneumonia, costochondritis, rib pain, rib fracture, muscle strain) Imaging Data Radiologist's impression: ITS Impressions Ribs w/Chest X-Ray 08/05/24 09:34 IMPRESSION: 1. No rib fracture. 2. Improved airspace opacities in left lower lung zone, consistent with pneumonia. Discharge Plan Discharge Clinical Impression: Left-sided chest wall pain, Left lower lobe pneumonia Patient Disposition: Home, Self-Care Condition: Stable Instructions: Antibiotic Form, Pneumonia (ED), Chest Wall Pain (ED) Additional Instructions: X-ray shows improvement of your airspaces in the left lower lung zone likely from resolving pneumonia. No sign of rib fracture Take prescription medications only as prescribed-Medrol Dosepak and Tessalon Perles Continue nebulized treatments as needed Increase fluids and stay well hydrated Tylenol/motrin for pain/fever Go to the ED if you develop a worsening in your condition- high fever not controlled by Tylenol or Motrin, dehydration, weakness, lethargy, shortness of breath, or chest pain. Follow up with your PCP in 3-5 days if symptoms persist. Prescriptions: New benzonatate 200 mg capsule 200 mg PO TID 7 Days Qty: 21 0RF methylprednisolone [Medrol (Lennox)] 4 mg tablets,dose pack See Rx Instructions PO .COMPLEX Qty: 21 0RF Rx Instructions: orally per package directions No Action Mirena 20 mcg/24 hours (7 yrs) 52 mg Intrauterine Device 1 device INTRAUTERINE ONCE loratadine 10 mg tablet 10 mg PO DAILY cholecalciferol (vitamin D3) 125 mcg (5,000 unit) capsule 125 mcg PO WEEKLY ascorbic acid (vitamin C) 500 mg Tablet 250 mg PO DAILY omega 0-ebs-guz-fish oil [Fish Oil] 60-90-500 mg Capsule 1 cap PO DAILY Adults Multivitamin 18 mg iron-400 mcg-25 mcg Tablet 1 tablet PO DAILY Follow-up/Referrals: PHYSICIAN,[facility]OR[facility] [Primary Care Provider] - Time of Disposition: 09:51 Quality NIHSS Nursing Documentation ED NIHSS nursing documentation: reviewed/agree
[2024-08-05 09:07] VITALS: BP 91/57; PULSE 83; RESP 18; TEMP 36.6; O2SAT 100
== END 2024-08-05 09:56 | disposition home or self-care (01) ==
PROVIDERS: Emergency Provider Nurse Practitioner Family
DX: R07.89 Other chest pain (principal); J18.1 Lobar pneumonia, unspecified organism
CPT/HCPCS: 71046; 71100; 99213; G0463

== ENCOUNTER 2025-02-13 10:49 | Emergency (ER) | payer OTHER, SELFPAY ==
--- NOTE | 2025-02-13 10:52 | ED_ITS ---
HPI - URI/Sore Throat General Chief Complaint: Upper Respiratory Infection Stated Complaint: Cold/Sinus Time Seen by Provider: 02/13/25 10:51 Source: patient Mode of arrival: ambulatory Limitations: no limitations History of Present Illness HPI Narrative: Patient is a 44-year-old female that presents with 1 week of body aches, headaches, chills, sore throat, cough chest, chest congestion, nasal drainage and yellow and green sputum, ear pain. Also has decreased appetite and nausea but denies any vomiting or diarrhea. Patient has hx of lung disease and pneumonia. Has tried otc medication with no relief. Related Data Home Medications Medication Instructions Recorded Confirmed Last Taken Type levonorgestrel (Mirena) 1 device intrauterine ONCE 01/10/22 08/05/24 Unknown History cholecalciferol (vitamin D3) 125 125 mcg PO WEEKLY 07/15/24 08/05/24 Unknown History mcg (5,000 unit) capsule loratadine 10 mg tablet 10 mg PO DAILY 07/15/24 08/05/24 Unknown History ascorbic acid (vitamin C) 500 mg 250 mg PO DAILY 07/26/24 08/05/24 Unknown History tablet multivit with minerals-iron 18 1 tablet PO DAILY 07/26/24 08/05/24 Unknown History mg-folic ac 400 mcg-vit K 25 mcg tablet (Adults Multivitamin) omega 1-xbv-tyj-fish oil 60 mg-90 1 cap PO DAILY 07/26/24 08/05/24 Unknown History mg-500 mg capsule (Fish Oil) albuterol sulfate 0.63 mg/3 mL 0.63 mg inhalation Q4H 08/05/24 08/05/24 Unknown History solution for nebulization Allergies Allergy/AdvReac Type Severity Reaction Status Date / Time clarithromycin (From Biaxin) Allergy Mild Rash Verified 02/13/25 10:56 Review of Systems Review of Systems: All systems reviewed & are unremarkable except as noted in HPI and below Constitutional: Constitutional: Reports chills, Denies fatigue, Denies fever(s), Reports headache(s), Denies malaise and Denies weakness Eyes: Eyes: Denies blurry vision, Denies itchy eyes and Denies loss of vision ENT: Reports otalgia, Reports headache(s), Reports nasal congestion, Denies sinus pain and Reports sore throat Cardiovascular: Cardiovascular: Denies chest pain, Denies irregular heart rhythm and Denies dyspnea Respiratory: Respiratory: Reports cough and Denies dyspnea Gastrointestinal: Gastrointestinal: Denies abdominal pain, Denies diarrhea, Reports nausea and Denies vomiting Musculoskeletal: Musculoskeletal: Denies back pain, Reports myalgias and Denies arthralgias Integumentary/Breasts: Skin/Breast: Denies pruritus and Denies rash Neurologic: Reports headache(s), Denies loss of vision and Denies weakness Psychiatric: Psychiatric: Reports no additional psychiatric complaints Endocrine: Endocrine: Denies fatigue Allergic/Immunologic: Allergic/Immunologic: Denies itchy eyes PMFSH Comments At time of signature, agree with nursing past medical, surgical, social and family history. There is no relevant family history pertinent to the presenting complaint. Exam Const: General: cooperative, healthy appearing, comfortable, no acute distress and well nourished Nutritional Appearance: well nourished Orientation/consciousness: patient oriented x3 Limitations: no limitations HENMT: Head: normal to inspection, normocephalic and atraumatic Ears: hearing grossly normal bilaterally, external ears normal, TM's normal bilaterally, EAC's normal and no periauricular adenopathy Face/Nose/Sinus: Normal external nose present, Abnormal mucous membranes and turbinates present erythematous bilateral and diffuse, normal facial exam, face symmetric and Facial tenderness on exam of face and sinuses Face and sinus: normal facial exam and face symmetric Mouth: Yes Normal oral and palatal mucosa present, Yes lip normal, Yes tongue normal, Yes Normal salivary glands and ducts present, Yes oropharynx normal and Yes moist mucous membranes Teeth and gingiva: dentition normal Throat: posterior oropharynx normal, tonsils normal, uvula midline and postnasal drainage Eyes: General: appearance normal, both eyes and all related structures Alignment and Position: alignment normal and position normal Periorbital: periorbital findings normal Eyelids: eyelids normal Pupils: Equal, round and reactive pupils present Neck: Neck: normal visual inspection, full ROM, no lymphadenopathy and supple Chest: Chest palpation & inspection: normal inspection of the chest and normal palpation of entire chest wall Resp: Effort & Inspection: normal respiratory effort and able to speak in complete sentences Auscultation: clear to auscultation bilaterally, no crackles, no rales, no rhonchi and no wheezes Cardio: Rate: regular rate Rhythm: regular rhythm Heart sounds: S1 normal heart sound present and S2 normal heart sound present GI: Inspection: normal to inspection Skin: General skin exam: normal color and no rashes or lesions noted Neuro: General: patient oriented x3 and moves all extremities Cranial nerves: Yes Equal, round and reactive pupils present Speech: normal speech Gait exam (Neuro): Normal gait present Extrem: General: normal to inspection, full ROM and no edema Psych: Appearance: grossly normal and well kempt Mental Status: mental status grossly normal Speech and movement: Normal speech and movement present Affect: normal affect Attitude: cooperative Thought process: Normal thought process present Course Course Emergency Course: Discharge instructions reviewed with patient, as well as provided in writing per nursing staff. The instructions also include specific and strict return/GO TO THE ER as well as f/u information. All questions have been answered, and the patient deny any further questions with discharge and discharge plan. Portions of this record may have been created with voice recognition software Level of Care: Express Care Visit Vital Signs Vital signs: Reviewed MDM - URI/Sore Throat MDM Narrative Medical decision making narrative: Pt well hydrated appearing, in no respiratory distress, hemodynamically stable. Recommend supportive care. The patient is stable at time of discharge the clinical impression was discussed and the patient was given the opportunity to ask questions, which were addressed as completely as possible given the information available at present. Anticipatory guidance and return to care precautions were discussed and the importance of primary care follow-up was stressed and encouraged. The patient voiced understanding of the plan, indications to return, and the need for follow-up. Exam findings show no acute concerns or changes Patient is appropriate for outpatient treatment and follow-up. Differential diagnosis considered: Simeon virus, strep pharyngitis, allergic rhinitis, upper respiratory tract infection, sinusitis, rhinosinusitis, nasopharyngitis. viral pharyngitis, otitis media, otitis externa, otitis effusion, foreign body, cerumen impaction, viral syndrome, and influenza. Medical Records Attestation: I reviewed the patient's medical records. Discharge Plan Discharge Clinical Impression: Sinusitis Qualifiers: Sinusitis location: maxillary Chronicity: acute Recurrence: non-recurrent Qualified Code(s): J01.00 - Acute maxillary sinusitis, unspecified Patient Disposition: Home Condition: Stable Instructions: Sinusitis (ED) Additional Instructions: Take antibiotic as prescribed. Take steroids in the morning with food. Other symptomatic treatments include: -Alternate Tylenol and Motrin per package directions for fever or pain: Tylenol 650-1000mg by mouth every 4-6 hours. Do not exceed 4000mg in 24 hours. Advil (Ibuprofen) 600 mg by mouth every 6 hours. Do not exceed 2400mg in 24 hours. 8 AM: Tylenol 11 AM: Ibuprofen 2 PM: Tylenol 5 PM: Ibuprofen 8 PM: Tylenol 11 PM: Ibuprofen 2 AM: Tylenol 5 AM: Ibuprofen -Antihistamine medication such as Benadryl at night and Zyrtec/Claritin/Mary during the day can help improve symptoms. -Use Flonase twice a day for 5 days then daily to help reduce the inflammation and dry up your sinuses. -You can also use Sudafed or Mucinex. Be sure to drink plenty of water with these medications at least 8 ounces with every dose and it is important to drink 8 to 10 glasses of water per day. Water is a natural decongestant -Eat and drink things that are easy to swallow, like tea or soup, or popsicles. -Oral rinses such as: Salt water gargles and/or may use topical anesthetic (eg. Chloraseptic spray) or lozenges to relieve dryness or throat pain). -Frequent hand washing or hand manuscript reader is one of the best ways to prevent spread of infection. -Using a vaporizer or humidifier at night will also help thin secretions and help with coughing up phlegm. Call your Primary Care Doctor and make a follow-up appointment in 3 days. If your cough worsens, you develop a fever greater than 103, you develop shaking chills, a fast heartbeat, trouble breathing and/or feel you are are breathing much faster than usual, call your Primary Care Doctor or go to the ER. Patient Language: Italian Prescriptions: New prednisone 20 mg tablet 40 mg PO DAILY 5 Days Qty: 10 0RF doxycycline monohydrate 100 mg tablet 100 mg PO BID 7 Days Qty: 14 0RF No Action benzonatate 200 mg capsule 200 mg PO TID 7 Days Qty: 21 0RF methylprednisolone [Medrol (Lennox)] 4 mg tablets,dose pack See Rx Instructions PO .COMPLEX Qty: 21 0RF Rx Instructions: orally per package directions albuterol sulfate 0.63 mg/3 mL Solution For Nebulization 0.63 mg INHALATION Q4H Mirena 20 mcg/24 hours (7 yrs) 52 mg Intrauterine Device 1 device INTRAUTERINE ONCE loratadine 10 mg tablet 10 mg PO DAILY cholecalciferol (vitamin D3) 125 mcg (5,000 unit) capsule 125 mcg PO WEEKLY ascorbic acid (vitamin C) 500 mg Tablet 250 mg PO DAILY omega 1-fiu-lte-fish oil [Fish Oil] 60-90-500 mg Capsule 1 cap PO DAILY Adults Multivitamin 18 mg iron-400 mcg-25 mcg Tablet 1 tablet PO DAILY Follow-up/Referrals: Austin Willis MD [Physician] - 3 Days Time of Disposition: 11:38
[2025-02-13 10:55] VITALS: BP 112/66; PULSE 77; RESP 18; TEMP 36.8; O2SAT 95
--- OUTSIDE RECORDS SUMMARY | 2025-02-13 11:20 | XMS_ITS | Referral Summary ---
Author Organization [facility] Address [address] [place] [address] Care Team Providers Care Head Of Marketing Analytics Name Role Phone Maximino Kevin MD Primary Care Provider [phone] Richard Menezes MD Unavailable [phone] Roel Trinidad DO Unavailable [phone] Encounters Date Type Department Care Team Description 11/25/2024 9:45 AM HAND POTTER Office Visit [facility] [address] [place] [phone] Jarrod Larson PA Raynaud's disease without gangrene (Primary Dx) from Last 3 Months Allergies Active Allergy Reactions Criticality Noted Date Comments Clarithromycin Other (See comments) Low 07/19/2021 [place] Medications No known medications Active Problems Problem Noted Date Diagnosed Date Raynaud's disease without gangrene 08/07/2021 Overview (09/04/2021): Labs 08/07/2021: TSH and free T4 WNL; hepatitis-B/C WNL; protein/creatinine ratio WNL; QuantiFERON WNL; ESR/CRP WNL; CMP: AST 31, but otherwise WNL; CBC WNL; Avise 08/13/2021: Positive ZANE 1:160 speckled, but otherwise negative, including normal complements, negative ANCA panel, including MPO, PR3, GBM Assessment & Plan (11/25/2024 10:33 AM HAND POTTER): 43 yoF with history of known raynaud's disease without digital sores. She initially presented to ensure no evidence for autoimmune disease. She has denied any other systemic complaints since last visit. Previous labs 07/2021, as above, displayed pos zane 1:160 in a speckled pattern without other autoantibodies. CRP/ESR wnl, TSH/free t4 wnl. She does continue to experience intermittent Raynaud's symptoms worsened in the winter months. Denies any digital sores. Symptoms are manageable with gloves and hand warmers. Discussed treatment with low-dose amlodipine 2.5 mg daily, which she defers at this time. Denies any peripheral joint complaints. No other recent systemic complaints. No obvious peripheral synovitis on exam. Do not see obvious evidence to suggest an underlying autoimmune disease. Continue symptomatic care for Raynaud's symptoms with gloves and hand warmers. Will have her follow up as needed or if any new symptoms arise. Assessment & Plan (11/20/2023 10:17 AM HAND POTTER): 42 yoF with history of known raynaud's disease without digital sores. She initially presented to ensure no evidence for autoimmune disease. Other than pulmonary issues discussed above, she has continued to deny other systemic complaints.. Previous labs 07/2021, as above, displayed pos zane 1:160 in a speckled pattern without other autoantibodies. CRP/ESR wnl, TSH/free t4 wnl. Since last visit, has noted general body stiffness in the morning for 20-30 minutes. She has minimal discomfort in the hands/wrists and feet, which she rates at a 1- 2/10. Symptoms do improve with activities. Has no obvious joint swelling and or tenderness. At this time, still do not see any obvious evidence to suggest an underlying autoimmune disease. Given her minimal peripheral joint complaints, did discuss a hand ultrasound to evaluate ensure no evidence for inflammation. He defers at this time, symptoms are very mild and manageable. Could reconsider, symptoms progress. Do not see obvious evidence for an underlying autoimmune disease disease at this time. Avoiding oral vasodilators given history of low blood pressure. Could reconsider topical nifedipine if symptoms worsen, although previously deferred due to cost. Follow-up 12 months. Sooner if needed. Could consider recheck on Avise at next visit. Assessment & Plan (10/07/2022 10:40 AM HAND POTTER): 41 yoF with history of known raynaud's disease without digital sores. She presented to ensure no evidence for autoimmune disease. Other than pulmonary issues discussed above, she has continued to deny other systemic complaints.. Previous labs 07/2021, as above, displayed pos zane 1:160 in a speckled pattern without other autoantibodies. CRP/ESR wnl, TSH/free t4 wnl. At this time, still do not see obvious evidence to suggest an underlying autoimmune inflammatory arthritis and/or CTD. Continue to avoid oral vasodilators given history of low blood pressure. Continue gloves and hand warmers. Did not previously fill topical nifedipine due to cost, although could reconsider if this worsens. Fu 12 months. Sooner if needed. Seen with Dr. Menezes. Consider recheck avise/anca panel at that point, although could recheck sooner if any new symptoms warrant this. Assessment & Plan (09/04/2021 12:48 PM HAND POTTER): 40 yoF with history of known raynaud's disease without digital sores. She presented to ensure no evidence for autoimmune disease. Other than pulmonary issues discussed below, has no other systemic complaints. Labs 07/2021, as above, displayed pos zane 1:160 in a speckled pattern without other autoantibodies. CRP/ESR wnl, TSH/free t4 wnl. At this time, do not see obvious evidence to suggest an underlying autoimmune inflammatory arthritis and/or CTD. Avoid oral vasodilators given history of low blood pressure. Continue gloves and hand warmers. Has not filled topical nifedipine due to cost, although could reconsider if this worsens. Fu 12 months. Sooner if needed. Seen with Dr. Menezes. Assessment & Plan (08/07/2021 12:47 PM HAND POTTER): 40 yoF with history of known raynaud's disease without digital sores. She presents to ensure no evidence for autoimmune disease. Other than pulmonary issues discussed below, has no other systemic complaints. Do not see any obvious evidence to suggest an underlying inflammatory arthritis and/or CTD. Suspect primary Raynaud's. Will evaluate further with appropriate labs. Rx topical nifedipine. Avoid oral vasodilators given her history of low blood pressure. Continue gloves and hand warmers. Fu 2 weeks. Sooner if needed. Seen with Dr. Menezes. Hemoptysis 08/07/2021 Assessment & Plan (08/07/2021 12:45 PM HAND POTTER): Has been following with pulmonology for several years due to chronic lung infection/bronchiectasis with recent bronchoscopy displaying evidence for mycobacterium Tb, per her report. Has a residual mostly dry cough with occasional scant sputum and mild SOB with mild/moderate exertion. One episode of hemoptysis few months prior. Would recommend continuing to follow with pulmonary regarding this issue. Is scheduled for repeat CT chest per Dr. Trinidad. Weight gain 08/07/2021 Assessment & Plan (08/07/2021 12:44 PM HAND POTTER): Unexplained weight gain of approximately 30 lb in last few months. Remains very active and eats a healthy diet. Will check thyroid studies. Paresthesias 08/07/2021 Assessment & Plan (08/07/2021 12:46 PM HAND POTTER): Intermittent numbness in the bilateral hands 1 through 5 digits predominantly in the morning. Recommend cock-up wrist splints. Consider EMG if symptoms persist. Social History Tobacco Use Types Packs/Day Years Used Date Smoking Tobacco: Never Smokeless Tobacco: Never Tobacco Cessation:Counseling Given: Not Answered Comments Unknown Sex and Gender Information Value Date Recorded Sex Assigned at Not on file Legal Sex Female 12:59 PM CDT Gender Identity Not on file Sexual Orientation Not on file Last Filed Vital Signs Vital Sign Reading Time Taken Comments Blood Pressure 110/80 11/25/2024 9:46 AM HAND POTTER Pulse 64 11/25/2024 9:46 AM HAND POTTER Temperature 37.1 C (98.7 F) 05/19/2023 1:26 PM CDT Respiratory Rate 18 03/29/2024 2:03 PM CDT Oxygen Saturation 92% 11/25/2024 9:46 AM HAND POTTER Inhaled Oxygen Concentration - - Weight 76.7 kg (169 lb) 11/25/2024 9:46 AM HAND POTTER Height 172.7 cm (5' 8 ) 11/25/2024 9:46 AM HAND POTTER Body Mass Index 25.7 11/25/2024 9:46 AM HAND POTTER Plan of Treatment Not on file Procedures Procedure Name Priority Date/Time Associated Diagnosis Comments HEPATITIS C ANTIBODY Routine 08/07/2021 11:22 AM HAND POTTER from Last 3 Months or Most Recently Relevant to Health Maintenance Results * Hepatitis C antibody (08/07/2021 11:22 AM HAND POTTER) Hep C Ab NON-REACTI VE NON-REACT TORRES [facility] SIGNAL TO CUT-OFF 0.01 <1.00 [facility] Comment: HCV antibody was non-reactive. There is no laboratory evidence of HCV infection. In most cases, no further action is required. However, if recent HCV exposure is suspected, a test for HCV RNA (test code 07349) is suggested. For additional information please refer to http://education.Kumo/faq/AZC81t2 (This link is being provided for informational/ educational purposes only.) 08/07/2021 11:2 2 AM HAND POTTER 08/07/2021 11:24 AM HAND POTTER Jarrod [facility] MICROBIOLOGY - GENE RAL ORDERABLES Final Result [facility] [address] [facility] [place] [address] from Last 3 Months or Most Recently Relevant to Health Maintenance Insurance [facility] Subscriber Plan / Payer (Ef fective 2022-Present) Name:Ursula Huff Relation to Subscriber:Self Name:Ursula Huff Payer ID:[id number] (NAIC) Group ID:Not on file Type: Address: [place] [phone] [facility] Member Subscriber Plan / Payer (Ef fective 2022-Present) Name:Ursula Huff Relation to Subscriber:Self Name:Ursula Huff Payer ID:[id number] (NAIC) Group ID:Not on file Type: Address: [place] [phone] [facility] Care Teams Head Of Marketing Analytics Relationship Specialty Start Date End Date Maximino Kevin MD 3 [facility] [address] [place] [id number] PCP - General Family Medicine 07/18/21 Richard Menezes MD [address] [place] [address] Consulting Physician Rheumatology 07/18/21 Roel Trinidad DO 3 [facility] [address] [place] [id number] Referring Physician Internal Medicine 02/12/23
--- OUTSIDE RECORDS SUMMARY | 2025-02-13 11:20 | XMS_ITS | Continuity of Care Document ---
Author Name [facility] Organization [facility] Care Team Providers Care Data Processing Auditor Name Role Phone [facility] Unavailable Unavailable Problems Combined list of problems from Department of Defense and Veterans Affairs facilities. It does not include entries that were removed or entered in error. Problem Status Onset Date Problem Type Date of Resolution Comments Source Paresthesia Active 10/18/19 Diagnosis 6130C-Af- C-[facility]Th [facility] porfirio Paresthesia Active 08/07/20 Condition 0055C-375 th [facility] por[facility] Raynaud's disease1 Active 08/07/20 Condition Outside Source Comment: Overview: Labs 08/07/2021: TSH and free T4 WNL; hepatitis-B/C WNL; protein/creatin ine ratio WNL; QuantiFERON WNL; ESR/CRP WNL; CMP: AST 31, but otherwise WNL; CBC WNL; Avise 08/13/2021: Positive HEMA 1:160 speck led, but otherwise negative, including normal complements, negative ANCA panel, including MPO, PR3, GBM Last Assessment & Plan: 41 yoF with history of known raynaud's disease without digital sores. She presented to ensure no evidence for autoimmune disease. Other than pulmonary issues discussed above, she has continued to deny other systemic complaints.. Previous labs 07/2021, as above, displayed pos hema 1:160 in a speckled pattern without other [...] sooner if any new symptoms warrant this. 0055C-375 th [facility] por[facility] Allergic rhinitis caused by pollen Active 05/11/20 19 Condition 0055C-375 th [facility] por[facility] Gastroesophageal reflux disease Active 05/11/20 19 Condition 0055C-375 th [facility] por[facility]io Cough Active 04/21/20 17 Condition DoD Acute bronchiolitis, unspecified Active 01/16/20 17 Condition DoD Anorexia nervosa Active Condition 0055C -375 th [facility] porfirio Depressive disorder Active Condition 00 55C-375 th [facility] por[facility]ir[facility] Lung infection Active Condition 0055C-3 75 th [facility] por[facility]irio Prolapsed cervical intervertebral disc, C5-C6 Active Condition 6130C-Af- C-375Th [facility] porfirio Powell-Terry syndrome Active Condition DoD Pain in left lower leg Active Condition DoD Pain in right leg Active Condition DoD CYSTITIS ACUTE Inactive Condition DoD lump in / on the skin Active Condition DoD shortness of breath Active Condition Do D dizziness Inactive Condition DoD XEROSIS CUTIS Inactive Condition DoD foot pain (soft tissue) Active Condition DoD Gynecologic Services Contraceptive Management Inactive Condition DoD MASTITIS ACUTE LEFT Inactive Condition D oD visit for: issue repeat prescription Inactive Condition DoD visit for: administrative purpose Inactive Condition DoD DYSTHYMIC DISORDER (DEPRESSIVE NEUROSIS) Active Condition DoD ASSESSMENT OF PATIENT CONDITION WORK-RELATED Active Condition DoD Inactive Condition DoD Test Positive Inactive Condition DoD CYSTITIS Inactive Condition DoD Patient Education - Procreative Management Active Condition DoD ROUTINE PELVIC EXAM Inactive Condition D oD DERMATITIS Inactive Condition DoD CANDIDIASIS VAGINAL Active Condition Do D UPPER RESPIRATORY INFECTION Active Condition DoD visit for: issue repeat prescription for medication Active Condition DoD DERMATITIS DUE TO COLD WEATHER Active Condition DoD nausea Inactive Condition DoD visit for: screening exam lipoid disorders Active Condition DoD visit for: follow-up exam Active Condition DoD NONINFECTIVE LEUKORRHEA Active Condition DoD visit for: screening exam for malignant neoplasm cervix Active Condition DoD visit for: screening exam malignant neoplasm breast Active Condition DoD ROUTINE GYNECOLOGICAL EXAM WITH CERVICAL PAP SMEAR Inactive Condition DoD Contraceptives Active Condition Pt. t o continue with lo ovral. DoD CHRONIC MAJOR DEPRESSION Active Condition Pt. taking prozac and that has been helpful. Pt. has a 7 yr history on prozac with good success. [facility] Administrative Evaluation Services Inactive Condition DoD METRORRHAGIA Active Condition Exam unremarkable. Breakthrough bleeding due to 3 months of continuous OCP use. Recommend stopping this pack of OCP's and allow bleeding to stop. Wait for next cycle then resume new pack of OCP and avoid continuous dosing. If bleeding does not improved RTC [facility] ANOREXIA NERVOSA Active Condition [facility] Oral Contraceptives Inactive Condition Requests to resume control. Will check hcg and renew meds [facility] DEPRESSION Active Condition [facility] PHARYNGITIS ACUTE VIRAL Inactive Condition the culture and strep screen is neg. [facility] visit for: administrative purpose Inactive Condition scheduled to see Dr. Russell this morning. [facility] Patient Counseling: Inactive Condition discussed with Dr. Anderson on January 31. Pt to stop taking prozac until she sees her OB provider.Pt instructed on vitamins. [facility] Outpatient Physician Consultation Inactive Condition Referral for OB placed. Pt to stop by the referrals management center to schedule an OB appt. Pt to discuss use of prozac with OB provider. [facility] Laboratory Studies Inactive Condition P t informed of positive test. [facility] Medications Combined list of outpatient medications from Department of Defense and Veterans Affairs facilities.Medications provided include 1) outpatient medications from the last 15 months, and 2) patient-reported medications. Medication Details Route Status Patient Instructions Prescription Expires Prescription Number Last Dispense Date Ordering Provider Order Date Order Qty Source albuterol 2.5 mg/3 mL (0.083%) inhalation solution 375 vial(s), 0 total refill(s ), Soft Stop Discont inued 05/21/20232022 0055C-3 [facility] albuterol 2.5 mg/3 mL (0.083%) inhalation solution INHALE THE CONTENTS OF ONE VIAL VIA NEBULIZE R EVERY SIX HOURS NEEDED FOR WHEEZING DIRECTED , # 375 mL, 2 total refill(s ), Acute Complet ed 02/10/2024 3 2023 375.0 Ambulat ory Pharmac y amoxicillin 875 mg oral tablet 0 total refill(s ) Discont inued 05/21/20232022 No Facilit y Access Centrum Silver oral tablet 1 tab(s), Oral, Daily, # 90 tab(s), 3 total refill(s ), Maintena nce, Pharmacy : [facility] Oral (given by mouth) Ordered 2022 90.0 0055C-3 [facility]th [facility] CertaVite Senior oral tablet 90 tab(s), 0 total refill(s ), Soft Stop Discont inued 05/28/20232022 0055C-3 [facility] CHOLECALCIF (VIT D3) 5,000 UNIT ORAL CAP 05/20/2024 [id number] 2023 90 [facility] BUCKNER ([facility] cholecalcif glenny 125 mcg (5000 intl units) oral capsule cholecal ciferol 125 mcg (5000 intl units) oral capsule Start Date: 05/29/21 Stop Date: 05/21/23 Status: Disconti nued Repeat number: 1 Discont inued 05/21/20232022 No Facilit y Access cholecalcif glenny 50 mcg (2000 intl units) oral tablet TAKE ONE TABLET BY MOUTH DAILY, # 90 EA, 3 total refill(s ), Acute Complet ed 05/21/2023 2 2022 90.0 Ambulat ory Pharmac y Claritin Daily, 0 total refill(s ), Maintena nce Discont inued 05/28/20232022 0055C[facility] Claritin 10 mg oral tablet 1 tab(s), Oral, Daily, PRN allergy symptoms , # 90 tab(s), 3 total refill(s ), Maintena mte, Pharmacy : [facility] Oral (given by mouth) Ordered 3 2022 90.0 0055C-3 75[facility] Claritin 10 mg oral tablet 1 tab(s), Oral, Daily, PRN allergy symptoms , # 90 tab(s), 3 total refill(s ), Maintena mte, Pharmacy : [facility] Oral (given by mouth) Ordered 5 2023 90.0 0055C-3 75[facility] doxycycline monohydrate 100 mg oral capsule 0 total refill(s ) Discont inued 05/21/20232022 No Facilit y Access Fish Oil oral capsule 1 cap(s), Oral, Daily, # 100 cap(s), 0 total refill(s ), Maintena nce Oral (given by mouth) Ordered 2023 100.0 0055C-3 [facility] FLUZONE QUAD (influenza virus vaccine quadrival (6 mos and up)/PF), 60MCG/.5ML, FLUZONE QUAD 1 (influen za virus vaccine quadriva l 1(6 mos and up)/PF), 60MCG/.5 ML, Start Date: 06/24/20 Stop Date: 05/21/23 Status: Disconti kash Repeat number: 1 Discont inued 05/21/20232022 No Facilit y Access ibuprofen 200 mg oral tablet 2 tab(s), Oral, every 6 hr, PRN pain, # 24 tab(s), 0 total refill(s ), Maintena nce Oral (given by mouth) Ordered 2022 24.0 0055C-[address] [place], [place] [address]Aria Love levalbutero l 0.31 mg/3 mL inhalation solution 3 mL, Inhale, every 8 hr, # 72 mL, 3 total refill(s ), Maintena nce, Pharmacy : [facility] Inhala tion (breat he in) Ordered 2023 72.0 6130C-A f-C-375 [facility] Ivan loratadine 10 mg oral tablet 90 tab(s), 0 Refill(s ), 0 total refill(s ), Soft Stop Discont inued 06/04/20232022 0055C-[address] [place], [place] [address]Aria Love Mirena 52 mg intrauterin e device IntraUte rine, Once, 0 total refill(s ), Maintena nce IntraU terine Ordered 2022 0055C-[address] [place], [place] [address]Aria Love Multiple Vitamins with Iron oral tablet Multiple Vitamins with Iron oral tablet Start Date: 05/29/21 Stop Date: 05/21/23 Status: Libiai kash Repeat number: 1 Discont inued 05/21/20232022 No Facilit y Access sulfamethox azole-trime thoprim 800 mg-160 mg oral tablet 0 total refill(s ) Discont inued 05/21/20232022 No Facilit y Access Vitamin C 1000 mg oral tablet 1 tab(s), Oral, Daily, 0 total refill(s ), Maintena nce Oral (given by mouth) Ordered 2023 0055C-3 75th [facility] Vitamin D3 125 mcg (5000 intl units) oral capsule 90 cap(s), 0 Refill(s ), 0 total refill(s ), Soft Stop Discont inued 06/04/20232022 0055C-3 [facility] Vitamin D3 125 mcg (5000 intl units) oral capsule 1 cap(s), Oral, Daily, with food, # 90 cap(s), 3 total refill(s ), Maintena [facility], Pharmacy : [facility] Oral (given by mouth) Ordered 5 2023 90.0 0055C-3 [facility] Vitamin D3 125 mcg (5000 intl units) oral tablet 1 tab(s), Oral, Daily, # 90 tab(s), 3 total refill(s ), Maintena [facility], Pharmacy : [facility] Oral (given by mouth) Ordered 4 2022 90.0 0055C-3 75th [facility] Vitamin D3 50 mcg (2000 intl units) oral tablet 90 tab(s), 0 total refill(s ), Soft Stop Discont inued 05/21/20232022 0055C-3 75[facility] Allergies, Adverse Reactions, Alerts Combined list of allergies from Department of Defense and Veterans Affairs facilities. It does not include entries that were removed or entered in error. 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 Unconfirm ed, but pt does not want to take Biaxin again. Unknown Organizat ion Immunizations Combined list of available immunizations from the Department of Defense and Veterans Affairs facilities. Immunization Series Date Given Administered By Site Reaction Lot Number CVX Code Drug Substance Abuse Prevention Coordinator Status Comments Source influenza, injectable, quadrivalent- pf 2022 MARIAHRBERRUZ 150 comple t ed Result Comment: Route: Unknown Manufactu rer: [facility] ([facility]) 6130C-A f-C-375 Th [facility] COVID-19 vaccine([place] vax 12y+) 2022 MARIAHRBERRUEduard 312 comple t ed Result Comment: Route: Unknown Manufactu rer: [facility] (MOD) 6130C-A f-C-375 [facility] SARS-CoV-2 (COVID-19) mRNA-Bivalent 2021 MARIAHRBERRUZ 229 comple t ed Result Comment: Route: Unknown Manufactu rer: [facility] (MOD) 6130C-A lindy-C-375 Th [facility] influenza, injectable, quadrivalent- pf 2021 MARIAHRBERRUZ 150 comple t ed Result Comment: Route: Unknown Manufactu rer: [facility] ([facility]) 6130C-A f-C-375 Th [facility]- [facility] pneumococcal 20-valent conjugate vaccine 2021 [facility] [id number] comple t ed Result Comment: Route: Intramusc ular(IM) Manufactu rer: [employer] (PFR) 6130C-A lindy-C-375 Th [facility]- Ivan Pneumococcal conjugate PCV20 1 2021 Unknown, Provider [id number] Pfizer, Inc (PFR) complet ed Pneumococ terrell conjugate PCV20 DoD COVID Vaccine Pfizer 2020 MARIAHRBATTLE 208 comple t ed Result Comment: Unit: Unknown Manufactu rer: () 6130C-A f-C-375 Th [facility] COVID-19, mRNA, LNP-S, PF, 30 mcg/0.3 mL dose 2020 ALUL, () Not Given COVID-19, mRNA, LNP-S, PF, 30 mcg/0.3 mL dose DoD influenza, injectable, quadrivalent- pf 2020 MARIAHRBATTLE 150 comple t ed Result Comment: Unit: Unknown Manufactu rer: () 6130C-A f-C-375 Th [facility] influenza, injectable, quadrivalent, preservative free 2020 ALUL, () Not Given influenza , injectabl e, quadrival ent, preservat jayjay free DoD COVID Vaccine Pfizer 2020 MARIAHRBATTLE 208 comple t ed Result Comment: Unit: Unknown Manufactu rer: [employer] [place] (PFR) 6130C-A f-C-375 Th [facility]- Ivan COVID-19, mRNA, LNP-S, PF, 30 mcg/0.3 mL dose 2020 [employer] [place] (PFR) Not Given COVID-19, mRNA, LNP-S, PF, 30 mcg/0.3 mL dose DoD COVID Vaccine Pfizer 2020 MARIAHRBATTLE 208 comple t ed Result Comment: Unit: Unknown Manufactu rer: [employer] [facility] [place] (PFR) 6130C-A f-C-375 Th [facility]- [facility] COVID-19, mRNA, LNP-S, PF, 30 mcg/0.3 mL dose 2020 [employer] [place] (PFR) Not Given COVID-19, mRNA, LNP-S, PF, 30 mcg/0.3 mL dose DoD tetanus-dipht h toxoids (Td) adult/adol 2020 zzLef t Arm [id number] [place] [employer] complet ed tetanus-d iphth toxoids (Td) adult/ado l 12/05/20 Given Ambulat ory Pharmac y varicella virus vaccine 2020 zzLef t Arm [id number] 21 Merck & Company Inc complet ed varicella virus vaccine 12/05/20 Given Ambulat ory Pharmac y tetanus and diphtheria toxoids, adsorbed, preservative free, for adult use (2 Lf of tetanus toxoid and 2 Lf of diphtheria toxoid) 1 2020 Unknown, Provider [id number] 09 [facility] (MBL) complet ed tetanus and diphtheri a toxoids, adsorbed, preservat jayjay free, for adult use (2 Lf of tetanus toxoid and 2 Lf of diphtheri a toxoid) DoD varicella virus vaccine 1 2020 Unknown, Provider [id number] 21 Merck (MSD) complet ed varicella virus vaccine DoD influenza, injectable, quadrivalent- pf 2019 MARIAHRBATTLE 150 comple t ed Result Comment: Unit: Unknown Manufactu rer: () 6130C-A f-C-375 Th [facility] influenza, injectable, quadrivalent, preservative free 2019 DAVIDSON, () Not Given influenza , injectabl e, quadrival ent, preservat jayjay free DoD influenza, injectable, quadrivalent- pf 2018 TERESABATTLE 150 comple t ed Result Comment: Unit: Unknown Manufactu rer: () 6130C-A f-C-375 Th [facility]- [facility] influenza, injectable, quadrivalent, preservative free 2018 BJ, () Not Given influenza , injectabl e, quadrival ent, preservat jayjay free DoD influenza, injectable, quadrivalent- pf 2017 TRANSCR IBED 150 complet ed influenza , injectabl e, quadrival ent-pf 07/13/18 Given Ambulat ory Pharmac y Influenza, injectable, quadrivalent, preservative free 1 2017 Unknown, Provider 150 Transcribed (TRS) complet ed Influenza , injectabl e, quadrival ent, preservat jayjay free DoD influenza, injectable, quadrivalent- pf 2016 zzRig ht Arm [id number] 150 GlaxoSmithKli ne complet ed influenza , injectabl e, quadrival ent-pf 05/22/17 Given Ambulat ory Pharmac y pneumococcal polysaccharid e, 23 valent 2016 zzLef t Arm [id number] 33 Merck & Company Inc complet ed pneumococ terrell polysacch aride, 23 valent 05/22/17 Given Ambulat ory Pharmac y pneumococcal polysaccharid e vaccine, 23 valent 1 2016 Unknown, Provider [id number] 33 Merck (MSD) complet ed pneumococ terrell polysacch aride vaccine, 23 valent DoD Influenza, injectable, quadrivalent, preservative free 1 2016 Unknown, Provider [id number] 150 [facility] ([facility]) complet ed Influenza , injectabl e, quadrival ent, preservat jayjay free DoD influenza, seasonal, injectable-pf 2015 zzRig ht Arm [id number] 140 [employer] complet ed influenza , seasonal, injectabl e-pf 08/27/16 Given Ambulat ory Pharmac y Influenza, seasonal, injectable, preservative free 1 2015 Unknown, Provider [id number] 140 [employer] (SEQ) complet ed Influenza , seasonal, injectabl e, preservat jayjay free DoD influenza, live, intranasal,qu adrivalent 2014 [id number] 149 Medimmune Inc comple t ed influenza , live, intranasa l,quadriv alent 09/14/15 Given Ambulat ory Pharmac y influenza, live, intranasal, quadrivalent 1 2014 Unknown, Provider [id number] 149 MedImmune, Inc. (MED) complet ed influenza , live, intranasa l, quadrival ent DoD influenza, live, intranasal,qu adrivalent 2013 [id number] 149 Medimmune Inc comple t ed influenza , live, intranasa l,quadriv alent 08/07/14 Given Ambulat ory Pharmac y influenza, live, intranasal, quadrivalent 1 2013 Unknown, Provider [id number] 149 MedImmune, Inc. (MED) complet ed influenza , live, intranasa l, quadrival ent DoD influenza, seasonal, injectable-pf 2012 [id number] 140 Novartis Pharmaceutica ls complet ed influenza , seasonal, injectabl e-pf 07/18/13 Given Ambulat ory Pharmac y Influenza, seasonal, injectable, preservative free 8 2012 Unknown, Provider [id number] 140 Novartis Pharmaceutica l [place]. (NOV) complet ed Influenza , seasonal, injectabl e, preservat jayjay free DoD influenza virus vaccine, live 2011 [id number] Medimmune Inc comple t ed influenza virus vaccine, live 07/14/12 Given Ambulat ory Pharmac y influenza virus vaccine, live, attenuated, for intranasal use 7 2011 Unknown, Provider [id number] 111 MedImmune, Inc. (MED) complet ed influenza virus vaccine, live, attenuate d, for intranasa l use DoD influenza virus vaccine, live 2010 [id number] 111 Medimmune Inc comple t ed influenza virus vaccine, live 07/21/11 Given Ambulat ory Pharmac y influenza virus vaccine, live, attenuated, for intranasal use 6 2010 Unknown, Provider [id number] 111 MedImmune, Inc. (MED) complet ed influenza virus vaccine, live, attenuate d, for intranasa l use [facility] influenza virus vaccine,split 2009 Tl t Arm [id number] [employer] complet ed influenza virus vaccine,s plit 07/17/10 Given Ambulat ory Pharmac y influenza virus vaccine, split virus (incl. purified surface antigen)-reti red CODE 1 2009 Unknown, Provider [id number] 15 [facility] [employer] (CSL) complet ed influenza virus vaccine, split virus (incl. purified surface antigen)- retired CODE DoD influenza virus vaccine,split [facility] [id number] 15 sanofi pasteur complet ed influenza virus vaccine,s plit 08/15/09 Given Ambulat ory Pharmac y influenza virus vaccine, split virus (incl. purified surface antigen)-reti red CODE 1 2008 Unknown, Provider [id number] 15 Sanofi Pasteur ([facility]) complet ed influenza virus vaccine, split virus (incl. purified surface antigen)- retired CODE DoD influenza virus vaccine,split 2007 [facility] Arm [id number] 15 GlaxoSmithKli ne complet ed influenza virus vaccine,s plit 09/06/08 Given Ambulat ory Pharmac y influenza virus vaccine, split virus (incl. purified surface antigen)-reti red CODE 1 2007 Unknown, Provider [id number] 15 [facility] complet ed influenza virus vaccine, split virus (incl. purified surface antigen)- retired CODE DoD influenza virus vaccine,split 2006 [facility] Arm [id number] 15 GlaxoSmithKli ne complet ed influenza virus vaccine,s plit 09/03/07 Given Ambulat ory Pharmac y influenza virus vaccine, split virus (incl. purified surface antigen)-reti red CODE 1 2006 Unknown, Provider [id number] 15 [employer] (B) complet ed influenza virus vaccine, split virus (incl. purified surface antigen)- retired CODE [facility] tetanus, diphtheria, acellular pertu is 2006 [facility] Arm [id number] sanofi pasteur complet ed tetanus, diphtheri a, acellular pertussis 08/13/07 Given Ambulat ory Pharmac y tetanus toxoid, reduced diphtheria toxoid, and acellular pertu is vaccine, adsorbed 1 2006 Unknown, Provider [id number] 115 Sanofi Pasteur ([facility]) complet ed tetanus toxoid, reduced diphtheri a toxoid, and acellular pertussis vaccine, adsorbed DoD influenza virus vaccine,split 2005 zzLef t Arm 0 15 sanofi pasteur complet ed influenza virus vaccine,s plit 08/19/06 Given Ambulat ory Pharmac y influenza virus vaccine, split virus (incl. purified surface antigen)-reti red CODE 1 2005 Unknown, Provider 0 15 Sanofi Pasteur ([facility]) complet ed influenza virus vaccine, split virus (incl. purified surface antigen)- retired CODE DoD measles/mumps /rubella virus vaccine 1990 TRANSCR IBED 03 complet ed measles/m umps/rube lla virus vaccine 04/14/91 Given Ambulat ory Pharmac y measles, mumps and rubella virus vaccine 1 1990 Unknown, Provider 03 Transcribed (TRS) complet ed measles, mumps and rubella virus vaccine DoD DTaP 1985 TRANSCR IBED 20 complet ed DTaP 02/07/86 Given Ambulat ory Pharmac y poliovirus vaccine, inactivated 1985 TRANSCR IBED 10 complet ed polioviru s vaccine, inactivat ed 02/07/86 Given Ambulat ory Pharmac y poliovirus vaccine, inactivated 5 1985 Unknown, Provider 10 Transcribed (TRS) complet ed polioviru s vaccine, inactivat ed DoD diphtheria, tetanus toxoids and acellular pertu is vaccine 5 1985 Unknown, Provider 20 Transcribed (TRS) complet ed diphtheri a, tetanus toxoids and acellular pertussis vaccine DoD DTaP 1983 TRANSCR IBED 20 complet ed DTaP 11/04/83 Given Ambulat ory Pharmac y poliovirus vaccine, inactivated 1983 TRANSCR IBED 10 complet ed polioviru s vaccine, inactivat ed 11/04/83 Given Ambulat ory Pharmac y poliovirus vaccine, inactivated 4 1983 Unknown, Provider 10 Transcribed (TRS) complet ed polioviru s vaccine, inactivat ed DoD diphtheria, tetanus toxoids and acellular pertu is vaccine 4 1983 Unknown, Provider 20 Transcribed (TRS) complet ed diphtheri a, tetanus toxoids and acellular pertussis vaccine DoD measles/mumps /rubella virus vaccine 1982 TRANSCR IBED 03 complet ed measles/m umps/rube lla virus vaccine 01/14/83 Given Ambulat ory Pharmac y measles, mumps and rubella virus vaccine 1 1982 Unknown, Provider 03 Transcribed (TRS) complet ed measles, mumps and rubella virus vaccine DoD DTaP 1980 TRANSCR IBED 20 complet ed DTaP 05/05/81 Given Ambulat ory Pharmac y poliovirus vaccine, inactivated 1980 TRANSCR IBED 10 complet ed polioviru s vaccine, inactivat ed 05/05/81 Given Ambulat ory Pharmac y poliovirus vaccine, inactivated 3 1980 Unknown, Provider 10 Transcribed (TRS) complet ed polioviru s vaccine, inactivat ed DoD diphtheria, tetanus toxoids and acellular pertu is vaccine 3 1980 Unknown, Provider 20 Transcribed (TRS) complet ed diphtheri a, tetanus toxoids and acellular pertussis vaccine DoD DTaP 1980 TRANSCR IBED 20 complet ed DTaP 03/21/81 Given Ambulat ory Pharmac y poliovirus vaccine, inactivated 1980 TRANSCR IBED 10 complet ed polioviru s vaccine, inactivat ed 03/21/81 Given Ambulat ory Pharmac y poliovirus vaccine, inactivated 2 1980 Unknown, Provider 10 Transcribed (TRS) complet ed polioviru s vaccine, inactivat ed DoD diphtheria, tetanus toxoids and acellular pertu is vaccine 2 1980 Unknown, Provider 20 Transcribed (TRS) complet ed diphtheri a, tetanus toxoids and acellular pertussis vaccine DoD DTaP 1980 TRANSCR IBED 20 complet ed DTaP 01/17/81 Given Ambulat ory Pharmac y poliovirus vaccine, inactivated 1980 TRANSCR IBED 10 complet ed polioviru s vaccine, inactivat ed 01/17/81 Given Ambulat ory Pharmac y poliovirus vaccine, inactivated 1 1980 Unknown, Provider 10 Transcribed (TRS) complet ed polioviru s vaccine, inactivat ed DoD diphtheria, tetanus toxoids and acellular pertu is vaccine 1 1980 Unknown, Provider 20 Transcribed (TRS) complet ed diphtheri a, tetanus toxoids and acellular pertussis vaccine DoD Results Combined list of recent chemistry, hematology and other laboratory results from [employer], ranging from 15 months to all on record, depending upon the facility. Order Name Results Value Reference Range Date Interpretation Specimen Comments Source [id number]|2025-02-13 11:21:00|2025-02-13 11:20:00|XMS_ITS|MIGUEL AG CHICHI|External Medical Summaries|[id number]|" Encounter Summary Created on: February 13, 2025 Ursula Huff Kenia : 1980 Sex: Female Author Organization [facility] Address [address] [place] [address] Care Team Providers Care Data Processing Auditor Name Role Phone Clifton Allison MD Unavailable [phone] Maximino Kevin MD Primary Care Provider [phone] Encounter Details Date Type Department Care Team (Latest Contact Info) Description 04/20/2024 MyCACT Biotecht Message Enc [facility] Medical Group Multispecialty Care - [facility] [address] [place] [address] Roel Trinidad DO [address] [place] [address] Nebulizer Machine Social History Tobacco Use Types Packs/Day Years Used Date Smoking Tobacco: Never Smokeless Tobacco: Never Alcohol Use Standard Drinks/Week Comments Yes 0 (1 standard drink = 0.6 oz pur e alcohol) rare PHQ-2 Answer Date Recorded PHQ-2 Score - If the patient scores above 3, please move on to questions 3-9 0 07/19/2021 Comments No Sex and Gender Information Value Date Recorded Sex Assigned at Not on file Legal Sex Female 4:00 PM CDT Gender Identity Not on file Sexual Orientation Not on file documented as of this encounter Plan of Treatment Upcoming Encounters Date Type Department Care Team (Late st Contact Info) Description 02/15/2025 9:15 AM CDT Appointment [facility] [place] [address] [address] Roel Trinidad DO [address] [facility] [address] [place] [address] 02/28/2025 11:20 AM CDT Office Visit [facility] Medical Group Multispecialty Care - [facility] [address] [place] [address] Roel Trinidad [address] [facility] [address] [place] [address] documented as of this encounter Visit Diagnoses Not on filedocumented in this encounter Additional Health Concerns Assessment Noted Time PHQ-9 Depression Total Score: 0 07/19/20 11:28 AM CDT documented as of this encounter Care Teams Data Processing Auditor Relationship Specialty Start Date End Date Maximino Kevin MD 3 [facility] [address] [place] [address] PCP - General FAMILY PRACTICE 11/28/21 Clifton Allison MD Referring Physician INFECTIOUS DISEASE 09/10/21 documented as of this encounter "
--- OUTSIDE RECORDS SUMMARY | 2025-02-13 11:20 | XMS_ITS | Clinical Summary ---
Author Organization [facility] Address [address] [place] [address] Care Team Providers Care Explosives Worker Name Role Phone Maximino Kevin MD Primary Care Provider [phone] Richard Menezes MD Unavailable [phone] Roel Trinidad DO Unavailable [phone] Allergies Active Allergy Reactions Criticality Noted Date [...] GBM Assessment & Plan (11/25/2024 10:33 AM SURVEILLANCE DUAL RATE OFFICER): 43 yoF with history of known raynaud's [...] arise. Assessment & Plan (11/20/2023 10:17 AM SURVEILLANCE DUAL RATE OFFICER): 42 yoF with history of known raynaud's [...] visit. Assessment & Plan (10/07/2022 10:40 AM SURVEILLANCE DUAL RATE OFFICER): 41 yoF with history of known raynaud's [...] this. Assessment & Plan (09/04/2021 12:48 PM SURVEILLANCE DUAL RATE OFFICER): 40 yoF with history of known raynaud's [...] Menezes. Assessment & Plan (08/07/2021 12:47 PM SURVEILLANCE DUAL RATE OFFICER): 40 yoF with history of known raynaud's [...] 08/07/2021 Assessment & Plan (08/07/2021 12:45 PM SURVEILLANCE DUAL RATE OFFICER): Has been following with pulmonology for several [...] 08/07/2021 Assessment & Plan (08/07/2021 12:44 PM SURVEILLANCE DUAL RATE OFFICER): Unexplained weight gain of approximately 30 lb in last few months. Remains very active and eats a healthy diet. Will check thyroid studies. Paresthesias 08/07/2021 Assessment & Plan (08/07/2021 12:46 PM SURVEILLANCE DUAL RATE OFFICER): Intermittent numbness in the bilateral hands 1 through 5 digits predominantly in the morning. Recommend cock-up wrist splints. Consider EMG if symptoms persist. Encounters Date Type Department Care Team Description 11/25/2024 9:45 AM SURVEILLANCE DUAL RATE OFFICER Office Visit [facility] [address] [place] [address] Jarrod Larson PA Raynaud's disease without gangrene (Primary Dx) from Last 3 Months Social History Tobacco Use Types Packs/Day Years Used Date Smoking Tobacco: Never Smokeless Tobacco: Never Tobacco Cessation:Counseling Given: Not Answered Comments Unknown Sex and Gender Information Value Date Recorded Sex Assigned at Not on file Legal Sex Female 12:59 PM CDT Gender Identity Not on file Sexual Orientation Not on file Obstetrics History Last Filed Vital Signs Vital Sign Reading Time Taken Comments Blood Pressure 110/80 11/25/2024 9:46 AM SURVEILLANCE DUAL RATE OFFICER Pulse 64 11/25/2024 9:46 AM SURVEILLANCE DUAL RATE OFFICER Temperature 37.1 C (98.7 F) 05/19/2023 1:26 PM CDT Respiratory Rate 18 03/29/2024 2:03 PM CDT Oxygen Saturation 92% 11/25/2024 9:46 AM SURVEILLANCE DUAL RATE OFFICER Inhaled Oxygen Concentration - - Weight 76.7 kg (169 lb) 11/25/2024 9:46 AM SURVEILLANCE DUAL RATE OFFICER Height 172.7 cm (5' 8 ) 11/25/2024 9:46 AM SURVEILLANCE DUAL RATE OFFICER Body Mass Index 25.7 11/25/2024 9:46 AM SURVEILLANCE DUAL RATE OFFICER Plan of Treatment Health Maintenance Due Date Last Done Comments Breast Cancer Screening-Mammogram 1980 Cervical Cancer Screening 1980 Depression Screening 1980 Hepatitis B Screening 1998 Regular Well Visit/Exam 18-64 1998 Varicella Vaccines (2 of 2 - 13+ 2-dose series) 01/02/2021 12/05/2020 Influenza Vaccine (Season Ended) 2025 08/06/2023, 08/08/2022, 08/02/2021, Additional history exists DTaP/Tdap/Td Vaccine (8 - Td or Tdap) 12/05/2030 12/05/2020, 08/13/2007, 02/07/1986, Additional history exists Hepatitis C Screening Completed 08/07/2021 Pneumococcal vaccine <65 Aged Out 06/16/2022, 04/29 No longer eligible based on patient's age to complete this topic HPV Vaccines Aged Out No longer eligi ble based on patient's age to complete this topic Procedures Procedure Name Priority Date/Time Associated Diagnosis Comments HEPATITIS C ANTIBODY Routine 08/07/2021 11:22 AM SURVEILLANCE DUAL RATE OFFICER from Last 3 Months or Most Recently Relevant to Health Maintenance Results * Hepatitis C antibody (08/07/2021 11:22 AM SURVEILLANCE DUAL RATE OFFICER) Hep C Ab NON-REACTI VE NON-REACT TORRES [facility] SIGNAL TO CUT-OFF 0.01 <1.00 [facility] Comment: HCV antibody was non-reactive. There is no laboratory evidence of HCV infection. In most cases, no further action is required. However, if recent HCV exposure is suspected, a test for HCV RNA (test code 58218) is suggested. For additional information please refer to http://education.[employer]or[employer]/faq/ZYX36x3 (This link is being provided for informational/ educational purposes only.) 08/07/2021 11:2 2 AM SURVEILLANCE DUAL RATE OFFICER 08/07/2021 11:24 AM SURVEILLANCE DUAL RATE OFFICER Jarrod JAE[facility] MICROBIOLOGY - GENE RAL ORDERABLES Final Result [facility] [address] [place] [id number] from Last 3 Months or Most Recently Relevant to Health Maintenance Insurance [facility] Care Teams Explosives Worker Relationship Specialty Start Date End Date Maximino Kevin MD [address] [facility] [place] [address] PCP - General Family Medicine 07/18/21 Richard Menezes MD [address] [place] [address] Consulting Physician Rheumatology 07/18/21 Roel Trinidad DO [address] [facility] [address] [place] [address] Referring Physician Internal Medicine 02/12/23
--- OUTSIDE RECORDS SUMMARY | 2025-02-13 11:21 | XMS_ITS | Encounter Summary ---
Author Organization [facility] Address [address] [place] [address] Care Team Providers Care Clerical Associate Name Role Phone None, Provider Primary Care Provider Clifton Cox MD Unavailable [phone] Maximino Kevin MD Primary Care Provider [phone] Encounter Details Date Type Department Care Team (Late st Contact Info) Description 10/29/2021 MyCTLM Comt Message Enc [facility] Medical Group Multispecialty Care - [facility] [address] [place] [address] Roel Trinidad DO [address] [facility] [address] [place] [address] Appointment? Social History Tobacco Use Types Packs/Day Years [...] on file Sexual Orientation Not on file COVID-19 Exposure Response Date Recorded In the last month, have you been in contact with someone who was confirmed or suspected to have Coronavirus / COVID-19? No / Unsure 10/17/2021 9:01 AM STABLE HELPER documented as of this encounter Plan of Treatment Upcoming Encounters Date Type Department Care Team (Late st Contact Info) Description 02/15/2025 9:15 AM CDT Appointment [facility] [address] [place] [address] Roel Trinidad, DO [address] [facility] [address] [place] [address] 02/28/2025 11:20 AM CDT Office Visit [facility] Medical Group Multispecialty Care - [facility] [address] [facility] [address] [place] [address] Roel Trinidad, [address] [facility] [address] [place] [address] documented as of this encounter Visit Diagnoses Not on filedocumented in this encounter Additional Health Concerns Assessment Noted Time PHQ-9 Depression Total Score: 0 07/19/20 11:28 AM CDT documented as of this encounter Care Teams Clerical Associate Relationship Specialty Start Date End Date None, Provider, PCP - General 07/19/21 11/27/21 Maximino Kevin MD 3 [facility] [address] [place] [address] PCP - General FAMILY PRACTICE 11/28/21 Clifton Allison MD Referring Physician INFECTIOUS DISEASE 09/10/21 documented as of this encounter
--- OUTSIDE RECORDS SUMMARY | 2025-02-13 11:21 | XMS_ITS | Encounter Summary ---
Author Organization [facility] Address [address] [place] [address] Care Team Providers Care Yarn Salvager Name Role Phone Clifton Allison MD Unavailable [phone] Maximino Kevin MD Primary Care Provider [phone] Encounter Details Date Type Department Care Team (Latest Contact Info) Description 12/24/2022 MyCWhelset Message Enc [facility] Medical Group Multispecialty Care - [facility] [address] [facility] [address] [place] [address] Roel Trinidad DO [address] [facility] [address] [place] [address] CT Scan and appointment Social History Tobacco Use Types Packs/Day Years [...] Info) Description 02/15/2025 9:15 AM CDT Appointment [facility] [address] [place] [address] Roel Trinidad, [address] [facility] [address] [place] [address] 02/28/2025 11:20 AM CDT Office Visit [facility] Medical Group Multispecialty Care - [facility] [address] [facility] [place] [address] Roel Trinidad, [address] [facility] [address] [place] [address] documented as of this encounter Visit Diagnoses Not on filedocumented in this encounter Additional Health Concerns Assessment Noted Time PHQ-9 Depression Total Score: 0 07/19/20 11:28 AM CDT documented as of this encounter Care Teams Yarn Salvager Relationship Specialty Start Date End Date Maximino Kevin MD 3 [facility] [address] [place] [address] PCP - General FAMILY PRACTICE 11/28/21 Clifton Allison MD Referring Physician INFECTIOUS DISEASE 09/10/21 documented as of this encounter
--- OUTSIDE RECORDS SUMMARY | 2025-02-13 11:21 | XMS_ITS | Encounter Summary ---
Author Organization [facility] Address [address] [place] [address] Care Team Providers Care Mining Captain Name Role Phone Clifton Allison MD Unavailable Maximino Kevin MD Primary Care Provider [phone] Encounter Details Date Type Department Care Team (Late st Contact Info) Description 03/02/2023 CityHookt Message Enc [facility] Medical Group Multispecialty Care - [facility] [address] [facility] [place] [address] Roel Trinidad DO [address] [facility] [address] [place] [address] Letter Social History Tobacco Use Types Packs/Day Years [...] Exposure Response Date Recorded In the last 10 days, have yo u been in contact with someone who was confirmed or suspected to have Coronavirus/COVID-19? No / Unsure 02/11/2023 11:23 AM CDT documented as of this encounter Plan of Treatment Upcoming Encounters Date Type Department Care Team (Late st Contact Info) Description 02/15/2025 9:15 AM CDT Appointment [facility] [place] [address] [place] [address] Roel Trinidad, DO [address] [facility] [address] [place] [address] 02/28/2025 11:20 AM CDT Office Visit [facility] Medical Group Multispecialty Care - [facility] [address] [facility] [place] [address] Roel Trinidad, [address] [facility] [address] [place] [address] documented as of this encounter Visit Diagnoses Not on filedocumented in this encounter Additional Health Concerns Assessment Noted Time PHQ-9 Depression Total Score: 0 07/19/20 11:28 AM CDT documented as of this encounter Care Teams Mining Captain Relationship Specialty Start Date End Date Maximino Kevin MD 3 [facility] [address] [place] [address] PCP - General FAMILY PRACTICE 11/28/21 Clifton Allison MD Referring Physician INFECTIOUS DISEASE 09/10/21 documented as of this encounter
--- OUTSIDE RECORDS SUMMARY | 2025-02-13 11:21 | XMS_ITS | Encounter Summary ---
Author Organization [facility] Address [address] [place] [address] Care Team Providers Care Employment Clerk Name Role Phone Clifton Allison MD Unavailable [phone] Maximino Kevin MD Primary Care Provider [phone] Encounter Details Date Type Department Care Team (Latest Contact Info) Description 06/25/2023 MyCRoboinvestt Message Enc [facility] Medical Group Multispecialty Care - [facility] [address] [facility] [place] [address] Roel Trinidad DO [address] [facility] [address] [place] [address] Nebulizer Referral Social History Tobacco Use Types Packs/Day Years [...] Info) Description 02/15/2025 9:15 AM CDT Appointment [facility] [address] [facility] [place] [address] Roel Trinidad, [address] [facility] [address] [place] [address] 02/28/2025 11:20 AM CDT Office Visit [facility] Medical Group Multispecialty Care - [facility] [address] [facility] [place] [address] Roel Trinidad, [address] [facility] [address] [place] [address] documented as of this encounter Visit Diagnoses Not on filedocumented in this encounter Additional Health Concerns Assessment Noted Time PHQ-9 Depression Total Score: 0 07/19/20 11:28 AM CDT documented as of this encounter Care Teams Employment Clerk Relationship Specialty Start Date End Date Maximino Kevin MD 3 [facility] [address] [place] [address] PCP - General FAMILY PRACTICE 11/28/21 Clifton Allison MD Referring Physician INFECTIOUS DISEASE 09/10/21 documented as of this encounter
--- OUTSIDE RECORDS SUMMARY | 2025-02-13 11:21 | XMS_ITS | Clinical Summary ---
Author Organization [facility] Address [address] [place] [address] Care Team Providers Care Business Insurance Agent Name Role Phone Clifton Allison MD Unavailable [phone] Maximino Kevin MD Primary Care Provider [phone] Allergies Active Allergy Reactions Criticality Noted Date Comments Clarithromycin Other (see comment) 07/19/2021 [place] Medications loratadine (CLARITIN) 10 MG tablet 3 Active Multiple Vitamins-Mineral s (CERTAVITE SENIOR/ANTIOXIDA NT) Tab tablet 3 Active Vitamin D3 (CHOLECALCIFEROL ) 50 mcg tablet 2 Active albuterol (PROVENTIL) (2.5 MG/3ML) 0.083% nebulizer solutionIndicati ons:Bronchiectas is without complication ([facility]) Take 3 mLs (2.5 mg total) by nebulization every 6 (six) hours as needed for Wheezing. 360 mL 2 3 Active Respiratory Therapy Supplies (NEBULIZER/TUBIN G/MOUTHPIECE) KitIndications:B ronchiectasis without complication ([facility]) To use with Nebulizer Machine 1 kit 3 Active Nebulizer MiscIndications: Bronchiectasis without complication ([facility]) To use with Nebulizer Treatments 1 each 3 Active fluticasone propionate (FLONASE) 50 MCG/ACT nasal spray 2 sprays by Nasal route daily. Active levonorgestrel (MIRENA, 52 MG,) 20 MCG/DAY IUD IntraUterine, Once, 0 total refill(s), Maintenance 3 Active Active Problems Problem Noted Date Diagnosed Date Weight gain 08/07/2021 Overview (10/31/2021): Last Assessment & Plan: Unexplained weight gain of approximately 30 lb in last few months. Remains very active and eats a healthy diet. Will check thyroid studies. Raynaud's disease without gangrene 08/07/2021 Overview (10/31/2021): Labs 08/07/2021: TSH and free T4 WNL; hepatitis-B/C WNL; protein/creatinine ratio WNL; QuantiFERON WNL; ESR/CRP WNL; CMP: AST 31, but otherwise WNL; CBC WNL; Avise 08/13/2021: Positive ZANE 1:160 speckled, but otherwise negative, including normal complements, negative ANCA panel, including MPO, PR3, GBM Last Assessment & Plan: 40 yoF with history of known raynaud's [...] Sooner if needed. Seen with Dr. Menezes. Paresthesias 08/07/2021 Overview (10/31/2021): Last Assessment & Plan: Intermittent numbness in the bilateral hands 1 through 5 digits predominantly in the morning. Recommend cock-up wrist splints. Consider EMG if symptoms persist. Hemoptysis 08/07/2021 Overview (10/31/2021): Last Assessment & Plan: Has been following with pulmonology for several [...] for repeat CT chest per Dr. Trinidad. Immunizations Immunization Administration Dates Next Due PFIZER COVID-19 (ORIGINAL FO RMULATION, PURPLE CAP) mRNA, LNP-S, PF, 30 MCG/0.3 ML DOSE 01/09/2021,12/19/2020 Family History Medical History Relation Comments No Known Problems Father Cancer Maternal Grandmother No Known Problems Mother Relation Status Comments Father Maternal Grandmother Mother Social History Tobacco Use Types Packs/Day Years Used Date Smoking Tobacco: Never Smokeless Tobacco: Never Tobacco Cessation:Counseling Given: Yes Alcohol Use Standard Drinks/Week Comments Yes 0 [...] Sign Reading Time Taken Comments Blood Pressure 101/71 08/18/2024 7:25 AM TRAIN CALLER Pulse 74 08/18/2024 7:25 AM TRAIN CALLER Temperature 36.3 C (97.3 F) 04/19/2024 10:54 AM CDT Respiratory Rate 16 08/18/2024 7:25 AM TRAIN CALLER Oxygen Saturation 97% 08/18/2024 7:25 AM TRAIN CALLER Inhaled Oxygen Concentration - - Weight 75.3 kg (166 lb) 08/18/2024 7:25 AM TRAIN CALLER Height 172.7 cm (5' 8 ) 08/18/2024 7:25 AM TRAIN CALLER Body Mass Index 25.24 08/18/2024 7:25 AM TRAIN CALLER Plan of Treatment Upcoming Encounters Date Type Department Care Team (Late st Contact Info) Description 02/15/2025 9:15 AM CDT Appointment [facility] [address] [place] [address] Roel Trinidad, [address] [facility] [address] [place] [address] 02/28/2025 11:20 AM CDT Office Visit [facility] Medical Group Multispecialty Care - [facility] [address] [place] [address] Roel Trinidad, [address] [facility] [address] [place] [address] Health Maintenance Due Date Last Done Comments Cervical Cancer Screening Pap Smear (Age 30 to 64) Every 3 Years 1980 Annual Physical 12/07/1983 Hepatitis C 1998 Hepatitis B Vaccines (1 of 3 - 19+ 3-dose series) 12/07/1999 Cervical Cancer Screening Pap with HPV Testing (Age 30 to 64) Every 5 Years 2010 Cervical Cancer Screening with HPV 2010 Mammogram Screening 2020 COVID-19 Vaccine ( season) 2024 08/06/2023, 08/08/2022, 08/30/2021, Additional history exists PHQ-2 (Physician Tanana) 09/28/2024 DTaP, Tdap and Td Vaccines (8 - Td or Tdap) 12/05/2030 12/05/2020, 08/13/2007, 02/07/1986, Additional history exists Pneumococcal Vaccine: Pediatrics (0 to 5 Years) and At-Risk Patients (6 to 49 Years) Aged Out 06/16/2022, 05/22/2017 No longer eligibl e based on patient's age to complete this topic HPV Vaccines Aged Out No longer eligi ble based on patient's age to complete this topic Meningococcal B Vaccine Aged Out No l onger eligible based on patient's age to complete this topic Meningococcal Vaccine Aged Out No marietta alyssa eligible based on patient's age to complete this topic RSV Immunizations Under 20 Months Aged Out No longer eligible based on patient's age to complete this topic Insurance Care Teams Business Insurance Agent Relationship Specialty Start Date End Date Maximino Kevin MD [address] [address] PCP - General FAMILY PRACTICE 11/28/21 Clifton Allison MD Referring Physician INFECTIOUS DISEASE 09/10/21
== END 2025-02-13 11:40 | disposition home or self-care (01) ==
PROVIDERS: Emergency Provider Nurse Practitioner Family
DX: J01.00 Acute maxillary sinusitis, unspecified (principal)
CPT/HCPCS: 99213; G0463

== ENCOUNTER 2025-08-15 08:11 | Emergency (ER) | payer OTHER, SELFPAY ==
--- NOTE | ~2025-08-15 | XR_ITS ---
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 Technique: 2 views obtained. Findings: Large right middle lobe infiltrate. No pneumothorax. Heart is normal size. Mediastinal and hilar contours are within normal limits. Bony thorax no acute abnormality. Impression: Right middle lobe pneumonia. Follow-up recommended to assess resolution Reviewed, dictated and finalized at location P. COUNSELOR Impression: Right middle lobe pneumonia. Follow-up recommended to assess resolution
--- NOTE | 2025-08-15 08:14 | ED.URI ---
HPI - URI/Sore Throat General Chief Complaint: Upper Respiratory Infection Stated Complaint: Cold Like Time Seen by Provider: 08/15/25 08:15 Source: patient Mode of arrival: ambulatory Limitations: no limitations History of Present Illness HPI Narrative: patient is a 44-year-old female who presents with chest congestion, fatigue, body aches, headache for 3 days. Denies any fever, chills nausea, vomiting, diarrhea. Patient has history of pneumonia. Has tried [id number] medications with no relief Related Data Home Medications ?Medication ?Instructions ?Recorded ?Confirmed ?Last Taken ?Type levonorgestrel (Mirena) 1 device intrauterine ONCE 01/10/22 08/05/24 Unknown History cholecalciferol (vitamin D3) 125 125 mcg PO WEEKLY 07/15/24 08/05/24 Unknown History mcg (5,000 unit) capsule loratadine 10 mg tablet 10 mg PO DAILY 07/15/24 08/05/24 Unknown History ascorbic acid (vitamin C) 500 mg 250 mg PO DAILY 07/26/24 08/05/24 Unknown History tablet multivit with minerals-iron 18 1 tablet PO DAILY 07/26/24 08/05/24 Unknown History mg-folic ac 400 mcg-vit K 25 mcg tablet (Adults Multivitamin) omega 6-gab-plb-fish oil 60 mg-90 1 cap PO DAILY 07/26/24 08/05/24 Unknown History mg-500 mg capsule (Fish Oil) albuterol sulfate 0.63 mg/3 mL 0.63 mg inhalation Q4H 08/05/24 08/05/24 Unknown History solution for nebulization Allergies Allergy/AdvReac Type Severity Reaction Status Date / Time clarithromycin (From Biaxin) Allergy Mild Rash Verified 08/15/25 08:16 Review of Systems Review of Systems: All systems reviewed & are unremarkable except as noted in HPI and below Constitutional: Constitutional: Denies chills, Reports fatigue, Denies fever(s), Reports headache(s), Denies malaise and Denies weakness Eyes: Eyes: Denies blurry vision, Denies itchy eyes and Denies loss of vision ENT: Denies otalgia, Reports headache(s), Denies nasal congestion, Denies sinus pain and Denies sore throat Cardiovascular: Cardiovascular: Denies chest pain, Denies irregular heart rhythm and Denies dyspnea Respiratory: Respiratory: Reports chest congestion, Reports cough and Denies dyspnea Gastrointestinal: Gastrointestinal: Denies abdominal pain, Denies diarrhea, Denies nausea and Denies vomiting Musculoskeletal: Musculoskeletal: Denies back pain, Reports myalgias and Denies arthralgias Integumentary/Breasts: Skin/Breast: Denies pruritus and Denies rash Neurologic: Reports headache(s), Denies loss of vision and Denies weakness Psychiatric: Psychiatric: Reports no additional psychiatric complaints Endocrine: Endocrine: Denies fatigue Allergic/Immunologic: Allergic/Immunologic: Denies itchy eyes PMFSH Comments At time of signature, agree with nursing past medical, surgical, social and family history. There is no relevant family history pertinent to the presenting complaint. Exam Const: General: cooperative, healthy appearing, comfortable, no acute distress and well nourished Nutritional Appearance: well nourished Orientation/consciousness: patient oriented x3 Limitations: no limitations HENMT: Head: normal to inspection, normocephalic and atraumatic Ears: hearing grossly normal bilaterally, external ears normal, TM's normal bilaterally, EAC's normal and no periauricular adenopathy Face/Nose/Sinus: Normal external nose present, Abnormal mucous membranes and turbinates present erythematous bilateral and diffuse, normal facial exam, sinuses nontender and face symmetric Face and sinus: normal facial exam, sinuses nontender and face symmetric Mouth: Yes Normal oral and palatal mucosa present, Yes lip normal, Yes tongue normal, Yes Normal salivary glands and ducts present, Yes oropharynx normal and Yes moist mucous membranes Teeth and gingiva: dentition normal Throat: posterior oropharynx normal, tonsils normal and uvula midline Eyes: General: appearance normal, both eyes and all related structures Alignment and Position: alignment normal and position normal Periorbital: periorbital findings normal Eyelids: eyelids normal Pupils: Equal, round and reactive pupils present Neck: Neck: normal visual inspection, full ROM, no lymphadenopathy and supple Chest: Chest palpation & inspection: normal inspection of the chest and normal palpation of entire chest wall Resp: Effort & Inspection: normal respiratory effort and able to speak in complete sentences Auscultation: clear to auscultation bilaterally, no crackles, no rales, no rhonchi and no wheezes Cardio: Rate: regular rate Rhythm: regular rhythm Heart sounds: S1 normal heart sound present and S2 normal heart sound present GI: Inspection: normal to inspection Skin: General skin exam: normal color and no rashes or lesions noted Neuro: General: patient oriented x3 and moves all extremities Cranial nerves: Yes Equal, round and reactive pupils present Speech: normal speech Gait exam (Neuro): Normal gait present Extrem: General: normal to inspection, full ROM and no edema Psych: Appearance: grossly normal and well kempt Mental Status: mental status grossly normal Speech and movement: Normal speech and movement present Affect: normal affect Attitude: cooperative Thought process: Normal thought process present Course Course Emergency Course: Discharge instructions reviewed with patient, as well as provided in writing per nursing staff. The instructions also include specific and strict return/GO TO THE ER as well as f/u information. All questions have been answered, and the patient deny any further questions with discharge and discharge plan. Portions of this record may have been created with voice recognition software Level of Care: Express Care Visit Vital Signs Vital signs: Vital Signs Temperature 36.9 C 08/15/25 08:21 Pulse Rate 80 08/15/25 08:21 Respiratory Rate 20 08/15/25 08:21 Blood Pressure 109/68 08/15/25 08:21 Pulse Oximetry 97 08/15/25 08:21 Oxygen Delivery Room Air 08/15/25 08:21 Temperature 36.9 C 08/15/25 08:21 Pulse Rate 80 08/15/25 08:21 Respiratory Rate 20 08/15/25 08:21 Blood Pressure 109/68 08/15/25 08:21 Pulse Oximetry 97 08/15/25 08:21 Oxygen Delivery Room Air 08/15/25 08:21 Reviewed MDM - URI/Sore Throat MDM Narrative Medical decision making narrative: x-ray shows pneumonia. Will treat with steroids and doxycycline Pt well hydrated appearing, in no respiratory distress, hemodynamically stable. Recommend supportive care. The patient is stable at time of discharge the clinical impression was discussed and the patient was given the opportunity to ask questions, which were addressed as completely as possible given the information available at present. Anticipatory guidance and return to care precautions were discussed and the importance of primary care follow-up was stressed and encouraged. The patient voiced understanding of the plan, indications to return, and the need for follow-up. Exam findings show no acute concerns or changes Patient is appropriate for outpatient treatment and follow-up. Differential diagnosis considered: pneumonia,Simeon virus, strep pharyngitis, allergic rhinitis, upper respiratory tract infection, sinusitis, rhinosinusitis, nasopharyngitis. viral pharyngitis, otitis media, otitis externa, otitis effusion, foreign body, cerumen impaction, viral syndrome, and influenza.? Medical Records Attestation: I reviewed the patient's medical records. Lab Data Attestation: I reviewed the patient's lab results. 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 Technique: 2 views obtained. Findings: Large right middle lobe infiltrate. No pneumothorax. Heart is normal size. Mediastinal and hilar contours are within normal limits. Bony thorax no acute abnormality. Impression: Right middle lobe pneumonia. Follow-up recommended to assess resolution Reviewed, dictated and finalized at location P. DCAST METEOROLOGIST Discharge Plan Discharge Clinical Impression: Pneumonia Qualifiers: Pneumonia type: due to unspecified organism Laterality: right Lung location: middle lobe of lung Qualified Code(s): J18.9 - Pneumonia, unspecified organism Patient Disposition: Home Condition: Stable Instructions: Pneumonia (ED) Additional Instructions: Pneumonia is a lung infection that can cause a fever, cough, and trouble breathing. Please continue all antibiotics as directed until complete. Nutrition is important - eat small frequent meals. Get lots of rest and drink fluids. Take antibiotic as prescribed. Take steroids in the morning with food. Other symptomatic treatments include: -Alternate Tylenol and Motrin per package directions for fever or pain: Tylenol 650-1000mg by mouth every 4-6 hours. Do not exceed 4000mg in 24 hours. Advil (Ibuprofen) 600 mg by mouth every 6 hours. Do not exceed 2400mg in 24 hours. 8 AM: Tylenol 11 AM: Ibuprofen 2 PM: Tylenol 5 PM: Ibuprofen 8 PM: Tylenol 11 PM: Ibuprofen 2 AM: Tylenol 5 AM: Ibuprofen -Antihistamine medication such as Benadryl at night and Zyrtec/Claritin/Mary during the day can help improve symptoms. -Use Flonase twice a day for 5 days then daily to help reduce the inflammation and dry up your sinuses. -You can also use Sudafed or Mucinex. Be sure to drink plenty of water with these medications at least 8 ounces with every dose and it is important to drink 8 to 10 glasses of water per day. Water is a natural decongestant -Eat and drink things that are easy to swallow, like tea or soup, or popsicles. -Oral rinses such as: Salt water gargles and/or may use topical anesthetic (eg. Chloraseptic spray) or lozenges to relieve dryness or throat pain). -Frequent hand washing or hand double end production grinder is one of the best ways to prevent spread of infection. -Using a vaporizer or humidifier at night will also help thin secretions and help with coughing up phlegm. Call your Primary Care Doctor and make a follow-up appointment in 3 days. If your cough worsens, you develop a fever greater than 103, you develop shaking chills, a fast heartbeat, trouble breathing and/or feel you are are breathing much faster than usual, call your Primary Care Doctor or go to the ER. Make sure you wash your hands frequently. Patient Language: Khmer Prescriptions: New prednisone 20 mg tablet 40 mg PO DAILY 5 Days Qty: 10 0RF doxycycline monohydrate 100 mg tablet 100 mg PO BID 7 Days Qty: 14 0RF No Action benzonatate 200 mg capsule 200 mg PO TID 7 Days Qty: 21 0RF methylprednisolone [Medrol (Lennox)] 4 mg tablets,dose pack See Rx Instructions PO .COMPLEX Qty: 21 0RF Rx Instructions: orally per package directions albuterol sulfate 0.63 mg/3 mL Solution For Nebulization 0.63 mg INHALATION Q4H Mirena 20 mcg/24 hours (7 yrs) 52 mg Intrauterine Device 1 device INTRAUTERINE ONCE loratadine 10 mg tablet 10 mg PO DAILY cholecalciferol (vitamin D3) 125 mcg (5,000 unit) capsule 125 mcg PO WEEKLY ascorbic acid (vitamin C) 500 mg Tablet 250 mg PO DAILY omega 0-orr-roq-fish oil [Fish Oil] 60-90-500 mg Capsule 1 cap PO DAILY Adults Multivitamin 18 mg iron-400 mcg-25 mcg Tablet 1 tablet PO DAILY prednisone 20 mg tablet 40 mg PO DAILY 5 Days Qty: 10 0RF doxycycline monohydrate 100 mg tablet 100 mg PO BID 7 Days Qty: 14 0RF Follow-up/Referrals: SAVOY, [Primary Care Provider] - 3 Days Time of Disposition: 08:51
[2025-08-15 08:21] VITALS: BP 109/68; PULSE 80; RESP 20; TEMP 36.9; O2SAT 97
[2025-08-15 08:38] LABS: EDCOVIDSCREEN Negative (Negative); EDINFLUASCREEN Negative (Negative); EDINFLUBSCREEN Negative (Negative)
== END 2025-08-15 08:53 | disposition home or self-care (01) ==
PROVIDERS: Emergency Provider Nurse Practitioner Family
DX: J18.9 Pneumonia, unspecified organism (principal); Z20.822 Contact with and (suspected) exposure to COVID-19
CPT/HCPCS: 71046; 87426; 87804; 99213; G0463